=== PATIENT | male | born 1950 | race Native Hawaiian/Other Pacific Islander ===

== ENCOUNTER → 2021-11-06 | Outpatient (CLI) | payer MEDICARE ==
--- NOTE | 2021-11-06 15:21 | US ---
EXAMINATION TYPE: US venous doppler duplex LE DATE OF EXAM: 11/06/2021 2:45 PM COMPARISON: LOWER EXTREMITY VENOUS INSUFFICIENCY CLINICAL HISTORY: L97.512 NON PRESSURE CHRONIC ULCER. SIDE PERFORMED: Bilateral 1) Color flow is present and patency is documented in the following vessels. No DVT or SVT is noted . Common Femoral Vein Deep Femoral Vein Femoral Vein Popliteal Vein Proximal Calf Veins Greater Saph Vein Upper Small Saph Vein 2) There is venous reflux noted at the following venous levels: No venous reflux seen at this time. IMPRESSION: No venous reflux identified at this time.
== END | disposition home or self-care (01) ==
LOC: RADUSWWP 13:16
PROVIDERS: ATTEND Thoracic Surgery (Cardiothoracic Vascular Surgery)
DX: L97.512 Non-pressure chronic ulcer of other part of right foot with fat layer exposed (principal)
CPT/HCPCS: 93923; 93970

== ENCOUNTER 2022-05-04 11:55 | Inpatient (IN) | payer MEDICARE ==
[2022-05-04] MEDS ORDERED: SODIUM CHLORIDE 0.9% 1,000 ML IV STA ×2 (12:29)
[2022-05-04] MEDS ORDERED: ACETAMINOPHEN TAB 500 MG TAB PO STA (12:29)
[2022-05-04 12:30] LABS: Glucose,Whole Blood 194 mg/dL (75-99)
--- NOTE | 2022-05-04 12:33 | ED ---
Weakness HPI - General Chief complaint: Weakness Stated complaint: Weakness Time Seen by Provider: 05/04/22 12:06 Source: patient Mode of arrival: wheelchair Limitations: no limitations - History of Present Illness Initial comments: 72-year-old male with past medical history of diabetes presents emergency Department with weakness. States he awoke this morning and he felt extremely weak. He tends to eat some oatmeal however could not due to nausea. He lives alone. Denies any sick contacts. No fevers. He is a diabetic and therefore checked his glucose which was normal. He denies any chest pain or shortness of breath. Has a mild cough. No abdominal pain. Denies any changes in his bowel or bladder habits. States that he was so fatigued that he kept falling asleep that he had a neighbor drive him to the emergency department. No other al leviating, precipitating or modifying factors - Related Data Home Medications Medication Instructions Recorded Confirmed Cholecalciferol [Vitamin D3 (25 25 mcg PO DAILY 05/04/22 05/05/22 Mcg = 1000 Iu)] Cyanocobalamin [Vitamin B-12] 500 mcg PO DAILY 05/04/22 05/05/22 Gabapentin 300 mg PO BID 05/04/22 05/05/22 Glucosam/Chond/Hyalu/Cf Borate 1 tab PO DAILY 05/04/22 05/05/22 [Move Free [employer] Tablet] Insulin Aspart Protam & Aspart 40 unit SQ AC-BRKFST 05/04/22 05/05/22 [NovoLOG MIX 70-30 Flexpen] Insulin Aspart Protam & Aspart 50 unit SQ AC-SUPPER 05/04/22 05/05/22 [NovoLOG MIX 70-30 Flexpen] Liraglutide [Victoza 2-Chemo] 0.6 mg SQ DAILY 05/04/22 05/05/22 Pravastatin Sodium [Pravachol] 40 mg PO HS 05/04/22 05/05/22 lisinopriL [Zestril] 10 mg PO DAILY 05/04/22 05/05/22 Allergies Allergy/AdvReac Type Severity Reaction Status Date / Time No Known Allergies Allergy Verified 05/05/22 11:48 Review of Systems ROS Statement: Those systems with pertinent positive or pertinent negative responses have been documented in the HPI. ROS Other: All systems not noted in ROS Statement are negative. Past Medical History Past Medical History: Diabetes Mellitus, Hypertension Past Surgical History: Orthopedic Surgery Past Psychological History: No Psychological Hx Reported Smoking Status: Never smoker Past Alcohol Use History: Occasional Past Drug Use History: None Reported General Exam Limitations: no limitations General appearance: alert, in no apparent distress Head exam: Present: atraumatic, normocephalic, normal inspection Eye exam: Present: normal appearance, PERRL, EOMI. Absent: scleral icterus, conjunctival injection, periorbital swelling ENT exam: Present: normal exam, mucous membranes moist Neck exam: Present: normal inspection. Absent: tenderness, meningismus, lymphadenopathy Respiratory exam: Present: normal lung sounds bilaterally. Absent: respiratory distress, wheezes, rales, rhonchi, stridor Cardiovascular Exam: Present: regular rate, normal rhythm, normal heart sounds. Absent: systolic murmur, diastolic murmur, rubs, gallop, clicks GI/Abdominal exam: Present: soft, normal bowel sounds. Absent: distended, tenderness, guarding, rebound, rigid Extremities exam: Present: full ROM, normal capillary refill, other (wound right third toe, dorsal aspect of left foot wound). Absent: tenderness, pedal edema, joint swelling, calf tenderness Back exam: Present: normal inspection Neurological exam: Present: alert, oriented X3, CN II-XII intact Psychiatric exam: Present: normal affect, normal mood Skin exam: Present: warm, dry, intact, normal color. Absent: rash Course Vital Signs 05/04/22 05/04/22 05/04/22 11:57 13:53 15:04 Temperature 100.2 F H 99.3 F Pulse Rate 126 H 105 H 100 Respiratory 20 22 18 Rate Blood Pressure 141/84 113/40 103/65 O2 Sat by Pulse 95 99 95 Oximetry 05/04/22 05/04/22 05/04/22 16:02 17:34 19:23 Temperature 99.8 F H 100.3 F H Pulse Rate 90 86 90 Respiratory 16 16 16 Rate Blood Pressure 92/59 123/64 131/73 O2 Sat by Pulse 95 95 95 Oximetry EKG Findings - EKG Comments: EKG Findings:: EKG demonstrates sinus tachycardia with a rate of 123. SD interval 131. QRS 136. QTC of 417. No acute ST segment elevations or depressions concerning for ischemic changes Medical Decision Making - Medical Decision Making Upon arrival patient placed into room 22. Thorough history and physical exam was performed. Patient does have a temp of 103. IV is established. He is given a liter bolus of normal saline and started on 130 mL per hour. Patient given Tylenol. Laboratory studies are conducted. Lactic acid 2.6. Covid and influenza are not detected. Chest x-ray demonstrates bibasilar atelectasis versus infiltrate. Patient does have open wound on his right third toe and anterior aspect of his left foot. He is sent over for x-rays of his lower extremity which demonstrated soft tissue edema bilaterally with diffuse osteopenia. No signs of osteomyelitis. Patient reevaluated after fluids and Tylenol. He was given Rocephin and azithromycin. Heart rate has improved. Recommended admission. Spoke with Dr. Mace agreed to admit the patient. Please wound care on consult. Patient remained in stable condition awaiting a bed - Lab Data Result diagrams: 05/04/22 12:38 05/04/22 12:38 Lab Results 05/04/22 05/04/22 05/04/22 Range/Units 12:24 12:38 12:38 WBC 8.3 (3.8-10.6) k/uL RBC 4.66 (4.30-5.90) m/uL Hgb 14.5 (13.0-17.5) gm/dL Hct 46.6 (39.0-53.0) % MCV 100.1 H (80.0-100.0) fL MCH 31.2 (25.0-35.0) pg MCHC 31.1 (31.0-37.0) g/dL RDW 13.3 (11.5-15.5) % Plt Count 39 L (150-450) k/uL MPV 10.6 Neutrophils % 92 % Lymphocytes % 3 % Monocytes % 3 % Eosinophils % 1 % Basophils % 1 % Neutrophils # 7.6 (1.3-7.7) k/uL Lymphocytes # 0.2 L (1.0-4.8) k/uL Monocytes # 0.3 (0-1.0) k/uL Eosinophils # 0.1 (0-0.7) k/uL Basophils # 0.0 (0-0.2) k/uL Manual Slide Review Performed PT (9.0-12.0) sec INR (<1.2) APTT (22.0-30.0) sec Sodium (137-145) mmol/L Potassium (3.5-5.1) mmol/L Chloride (98-107) mmol/L Carbon Dioxide (22-30) mmol/L Anion Gap mmol/L BUN (9-20) mg/dL Creatinine (0.66-1.25) mg/dL Est GFR (CKD-EPI)AfAm (>60 ml/min/1.73 sqM) Est GFR (CKD-EPI)NonAf (>60 ml/min/1.73 sqM) Glucose (74-99) mg/dL POC Glucose (mg/dL) 194 H (75-99) mg/dL POC Glu [employer] ID Romy Iglesias Lactic Ac Sepsis Rflx Plasma Lactic Acid Tyron (0.7-2.0) mmol/L Calcium (8.4-10.2) mg/dL Magnesium (1.6-2.3) mg/dL Total Bilirubin (0.2-1.3) mg/dL AST (17-59) U/L ALT (4-49) U/L Alkaline Phosphatase (38-126) U/L Troponin I (0.000-0.034) ng/mL Total Protein (6.3-8.2) g/dL Albumin (3.5-5.0) g/dL Urine Color Yellow Urine Appearance Clear (Clear) Urine pH 6.0 (5.0-8.0) Ur Specific [place] 1.018 (1.001-1.035) Urine Protein 1+ H (Negative) Urine Glucose (UA) Trace H (Negative) Urine Ketones 1+ H (Negative) Urine Blood Trace H (Negative) Urine Nitrite Negative (Negative) Urine Bilirubin Negative (Negative) Urine Urobilinogen <2.0 (<2.0) mg/dL Ur Leukocyte Esterase Negative (Negative) Urine RBC 2 (0-5) /hpf Urine WBC 3 (0-5) /hpf Ur Squamous Epith Cells <1 (0-4) /hpf Urine Mucus Few H (None) /hpf Coronavirus (PCR) (Not Detectd) Influenza Type A RNA (Not Detectd) Influenza Type B (PCR) (Not Detectd) 05/04/22 05/04/22 05/04/22 Range/Units 12:38 12:38 12:38 WBC (3.8-10.6) k/uL RBC (4.30-5.90) m/uL Hgb (13.0-17.5) gm/dL Hct (39.0-53.0) % MCV (80.0-100.0) fL MCH (25.0-35.0) pg MCHC (31.0-37.0) g/dL RDW (11.5-15.5) % Plt Count (150-450) k/uL MPV Neutrophils % % Lymphocytes % % Monocytes % % Eosinophils % % Basophils % % Neutrophils # (1.3-7.7) k/uL Lymphocytes # (1.0-4.8) k/uL Monocytes # (0-1.0) k/uL Eosinophils # (0-0.7) k/uL Basophils # (0-0.2) k/uL Manual Slide Review PT (9.0-12.0) sec INR (<1.2) APTT (22.0-30.0) sec Sodium 136 L (137-145) mmol/L Potassium 4.4 (3.5-5.1) mmol/L Chloride 104 (98-107) mmol/L Carbon Dioxide 18 L (22-30) mmol/L Anion Gap 14 mmol/L BUN 11 (9-20) mg/dL Creatinine 0.59 L (0.66-1.25) mg/dL Est GFR (CKD-EPI)AfAm >90 (>60 ml/min/1.73 sqM) Est GFR (CKD-EPI)NonAf >90 (>60 ml/min/1.73 sqM) Glucose 199 H (74-99) mg/dL POC Glucose (mg/dL) (75-99) mg/dL POC Glu [employer] ID Lactic Ac Sepsis Rflx Plasma Lactic Acid Tyron 2.6 H* (0.7-2.0) mmol/L Calcium 9.5 (8.4-10.2) mg/dL Magnesium 1.4 L (1.6-2.3) mg/dL Total Bilirubin 1.4 H (0.2-1.3) mg/dL AST 84 H (17-59) U/L ALT 37 (4-49) U/L Alkaline Phosphatase 283 H (38-126) U/L Troponin I (0.000-0.034) ng/mL Total Protein 7.9 (6.3-8.2) g/dL Albumin 4.4 (3.5-5.0) g/dL Urine Color Urine Appearance (Clear) Urine pH (5.0-8.0) Ur Specific [place] (1.001-1.035) Urine Protein (Negative) Urine Glucose (UA) (Negative) Urine Ketones (Negative) Urine Blood (Negative) Urine Nitrite (Negative) Urine Bilirubin (Negative) Urine Urobilinogen (<2.0) mg/dL Ur Leukocyte Esterase (Negative) Urine RBC (0-5) /hpf Urine WBC (0-5) /hpf Ur Squamous Epith Cells (0-4) /hpf Urine Mucus (None) /hpf Coronavirus (PCR) (Not Detectd) Influenza Type A RNA Not Detected (Not Detectd) Influenza Type B (PCR) Not Detected (Not Detectd) 05/04/22 05/04/22 05/04/22 Range/Units 12:38 12:38 12:38 WBC (3.8-10.6) k/uL RBC (4.30-5.90) m/uL Hgb (13.0-17.5) gm/dL Hct (39.0-53.0) % MCV (80.0-100.0) fL MCH (25.0-35.0) pg MCHC (31.0-37.0) g/dL RDW (11.5-15.5) % Plt Count (150-450) k/uL MPV Neutrophils % % Lymphocytes % % Monocytes % % Eosinophils % % Basophils % % Neutrophils # (1.3-7.7) k/uL Lymphocytes # (1.0-4.8) k/uL Monocytes # (0-1.0) k/uL Eosinophils # (0-0.7) k/uL Basophils # (0-0.2) k/uL Manual Slide Review PT 11.7 (9.0-12.0) sec INR 1.1 (<1.2) APTT 22.8 (22.0-30.0) sec Sodium (137-145) mmol/L Potassium (3.5-5.1) mmol/L Chloride (98-107) mmol/L Carbon Dioxide (22-30) mmol/L Anion Gap mmol/L BUN (9-20) mg/dL Creatinine (0.66-1.25) mg/dL Est GFR (CKD-EPI)AfAm (>60 ml/min/1.73 sqM) Est GFR (CKD-EPI)NonAf (>60 ml/min/1.73 sqM) Glucose (74-99) mg/dL POC Glucose (mg/dL) (75-99) mg/dL POC Glu [employer] ID Lactic Ac Sepsis Rflx Plasma Lactic Acid Tyron (0.7-2.0) mmol/L Calcium (8.4-10.2) mg/dL Magnesium (1.6-2.3) mg/dL Total Bilirubin (0.2-1.3) mg/dL AST (17-59) U/L ALT (4-49) U/L Alkaline Phosphatase (38-126) U/L Troponin I <0.012 (0.000-0.034) ng/mL Total Protein (6.3-8.2) g/dL Albumin (3.5-5.0) g/dL Urine Color Urine Appearance (Clear) Urine pH (5.0-8.0) Ur Specific [place] (1.001-1.035) Urine Protein (Negative) Urine Glucose (UA) (Negative) Urine Ketones (Negative) Urine Blood (Negative) Urine Nitrite (Negative) Urine Bilirubin (Negative) Urine Urobilinogen (<2.0) mg/dL Ur Leukocyte Esterase (Negative) Urine RBC (0-5) /hpf Urine WBC (0-5) /hpf Ur Squamous Epith Cells (0-4) /hpf Urine Mucus (None) /hpf Coronavirus (PCR) Not Detected (Not Detectd) Influenza Type A RNA (Not Detectd) Influenza Type B (PCR) (Not Detectd) 05/04/22 Range/Units 13:08 WBC (3.8-10.6) k/uL RBC (4.30-5.90) m/uL Hgb (13.0-17.5) gm/dL Hct (39.0-53.0) % MCV (80.0-100.0) fL MCH (25.0-35.0) pg MCHC (31.0-37.0) g/dL RDW (11.5-15.5) % Plt Count (150-450) k/uL MPV Neutrophils % % Lymphocytes % % Monocytes % % Eosinophils % % Basophils % % Neutrophils # (1.3-7.7) k/uL Lymphocytes # (1.0-4.8) k/uL Monocytes # (0-1.0) k/uL Eosinophils # (0-0.7) k/uL Basophils # (0-0.2) k/uL Manual Slide Review PT (9.0-12.0) sec INR (<1.2) APTT (22.0-30.0) sec Sodium (137-145) mmol/L Potassium (3.5-5.1) mmol/L Chloride (98-107) mmol/L Carbon Dioxide (22-30) mmol/L Anion Gap mmol/L BUN (9-20) mg/dL Creatinine (0.66-1.25) mg/dL Est GFR (CKD-EPI)AfAm (>60 ml/min/1.73 sqM) Est GFR (CKD-EPI)NonAf (>60 ml/min/1.73 sqM) Glucose (74-99) mg/dL POC Glucose (mg/dL) (75-99) mg/dL POC Glu [employer] Super[employer] ID Lactic Ac Sepsis Rflx Y Plasma Lactic Acid Tyron (0.7-2.0) mmol/L Calcium (8.4-10.2) mg/dL Magnesium (1.6-2.3) mg/dL Total Bilirubin (0.2-1.3) mg/dL AST (17-59) U/L ALT (4-49) U/L Alkaline Phosphatase (38-126) U/L Troponin I (0.000-0.034) ng/mL Total Protein (6.3-8.2) g/dL Albumin (3.5-5.0) g/dL Urine Color Urine Appearance (Clear) Urine pH (5.0-8.0) Ur Specific [place] (1.001-1.035) Urine Protein (Negative) Urine Glucose (UA) (Negative) Urine Ketones (Negative) Urine Blood (Negative) Urine Nitrite (Negative) Urine Bilirubin (Negative) Urine Urobilinogen (<2.0) mg/dL Ur Leukocyte Esterase (Negative) Urine RBC (0-5) /hpf Urine WBC (0-5) /hpf Ur Squamous Epith Cells (0-4) /hpf Urine Mucus (None) /hpf Coronavirus (PCR) (Not Detectd) Influenza Type A RNA (Not Detectd) Influenza Type B (PCR) (Not Detectd) Disposition Clinical Impression: Pyrexia, Bilateral pneumonia, Wound, open, foot, Sepsis, Tachycardia, Hypomagnesemia Disposition: ADMITTED IP TO THIS HOSP Is patient prescribed a controlled substance at d/c from ED?: No Decision to Admit Reason: Admit from EC Decision Date: 05/04/22 Decision Time: 15:04
[2022-05-04 12:49] LABS: Basophils % (A) 1 %; Eosinophils # (A) 0.1 k/uL (0-0.7); Eosinophils % (A) 1 %; HCT 46.6 % (39.0-53.0); HGB 14.5 gm/dL (13.0-17.5); Lymphocytes # (A) 0.2 k/uL (1.0-4.8); Lymphocytes % (A) 3 %; MCH 31.2 pg (25.0-35.0); MCHC 31.1 g/dL (31.0-37.0); MCV 100.1 fL (80.0-100.0); Mean Platelet Volume 10.6; Monocytes # (A) 0.3 k/uL (0-1.0); Monocytes % (A) 3 %; Neutrophils # (A) 7.6 k/uL (1.3-7.7); Neutrophils % (A) 92 %; RBC 4.66 m/uL (4.30-5.90); RDW 13.3 % (11.5-15.5); WBC 8.3 k/uL (3.8-10.6)
[2022-05-04 13:01] LABS: ALT 37 U/L (4-49); AST 84 U/L (17-59); African American GFR (CKD) >90 (>60 ml/min/1.73 sqM); Albumin 4.4 g/dL (3.5-5.0); Alkaline Phosphatase 283 U/L (38-126); Anion Gap 14 mmol/L; Blood Urea Nitrogen 11 mg/dL (9-20); Calcium 9.5 mg/dL (8.4-10.2); Carbon Dioxide 18 mmol/L (22-30); Chloride 104 mmol/L (98-107); Glucose 199 mg/dL (74-99); Magnesium 1.4 mg/dL (1.6-2.3); Non-African American GFR(CKD) >90 (>60 ml/min/1.73 sqM); Potassium 4.4 mmol/L (3.5-5.1); Sodium 136 mmol/L (137-145); Total Bilirubin 1.4 mg/dL (0.2-1.3); Total Protein 7.9 g/dL (6.3-8.2)
[2022-05-04 13:07] LABS: INR 1.1 (<1.2); Partial Thromboplastin Time 22.8 sec (22.0-30.0); Prothrombin Time 11.7 sec (9.0-12.0)
[2022-05-04] MEDS ORDERED: MAGNESIUM SULFATE-D5W PMX 1 GM in DEXTROSE/WATER 1 100ML.BAG IVPB ONE (13:14)
[2022-05-04 13:21] LABS: Platelet Count 39 k/uL (150-450)
--- NOTE | 2022-05-04 13:42 | XR ---
EXAMINATION TYPE: XR chest 2V DATE OF EXAM: 05/04/2022 COMPARISON: NONE TECHNIQUE: PA and lateral views submitted. HISTORY: Cough FINDINGS: Hypertrophic degenerative change of the spine. Moderate wedge deformity thoracolumbar junction. Heart size normal. No overt failure. Arthropathy of the shoulders. No pneumothorax. Subsegmental basilar c onsolidation. IMPRESSION: 1. Bibasilar atelectasis versus early infiltrate.
[2022-05-04 14:23] LABS: Appearance,Urine Clear (Clear); Bilirubin,Urine Negative (Negative); Blood,Urine Trace (Negative); Color,Urine Yellow; Glucose,Urine (UA) Trace (Negative); Ketones,Urine 1+ (Negative); Leukocyte Esterase,Urine Negative (Negative); Mucus,Urine Few /hpf; Nitrite,Urine Negative (Negative); Protein,Urine 1+ (Negative); RBC,Urine 2 /hpf (0-5); Specific Gravity,Urine 1.018 (1.001-1.035); Squamous Epithelial Cell,Urine <1 /hpf (0-4); Urobilinogen,Urine <2.0 mg/dL (<2.0); WBC,Urine 3 /hpf (0-5)
[2022-05-04] MEDS ORDERED: cefTRIAXone IN SWFI 1,000 MG/10 ML SYRINGE IVP STA (14:28)
[2022-05-04] MEDS ORDERED: AZITHROMYCIN 500 MG in SODIUM CHLORIDE 0.9% 250 ML IVPB STA (14:29)
[2022-05-04] MEDS ORDERED: ACETAMINOPHEN TAB 325 MG TAB PO PRN (15:07)
[2022-05-04] MEDS ORDERED: NALOXONE 0.4 MG/ML 1 ML VIAL IV PRN (15:07)
[2022-05-04] MEDS ORDERED: IBUPROFEN 400 MG TAB PO PRN (15:07)
[2022-05-04] MEDS ORDERED: SODIUM CHLORIDE 0.9% 1,000 ML IV SCH (15:15)
[2022-05-04 16:04] VITALS: RESP 16
--- NOTE | 2022-05-04 16:05 | XR ---
EXAMINATION TYPE: XR foot complete bilateral DATE OF EXAM: 05/04/2022 COMPARISON: NONE HISTORY: Bilateral foot wounds TECHNIQUE: Three views are submitted. FINDINGS: Vascular calcifications and calcaneal spurs are noted bilaterally. Soft tissue edema bilaterally with diffuse osteopenia. Hammertoe deformities bilaterally with narrowing of the DIP, PIP and MTP joints of the second through fifth digits. Narrowing the first MTP joint of the bilateral feet noted. No kary tructive changes. No acute fracture. IMPRESSION: 1. Diffuse osteopenia and arthropathy. No evidence of destructive change.
[2022-05-04] MEDS ORDERED: SODIUM CHLORIDE 0.9% 1,000 ML IV ONE (17:32)
[2022-05-04 17:55] LABS: Glucose,Whole Blood 265 mg/dL (75-99)
[2022-05-04] MEDS ORDERED: INSULN ASP PRT/INSULIN ASPART 100 UNIT/ML 10 ML VIAL SQ SCH (18:30)
[2022-05-04] MEDS ORDERED: FLUTICASONE 50MCG/SPRAY NASAL 16GM EA NOSTRIL SCH (19:00)
[2022-05-04 19:24] VITALS: BP 131/73; PULSE 90; TEMP 100.3
[2022-05-04] MEDS ORDERED: Liraglutide [Victoza] 0.6 MG/0.1 ML SQ SCH (19:45)
[2022-05-04] MEDS ORDERED: PRAVASTATIN SODIUM 40 MG TAB PO SCH (21:00)
[2022-05-04] MEDS ORDERED: GABAPENTIN 300 MG CAP PO SCH (21:00)
--- NOTE | 2022-05-04 21:21 | P.HPIM ---
History of Present Illness H&P Date: 05/04/22 Chief Complaint: Weakness Patient left from the ER AMA. Nurse called us that patient said he to be more comfortable at home. Patient was not seen by me. Past Medical History Past Medical History: Diabetes Mellitus, Hypertension Past Surgical History: Orthopedic Surgery Past Psychological History: No Psychological Hx Reported Smoking Status: Never smoker Past Alcohol Use History: Occasional Past Drug Use History: None Reported Medications and Allergies Home Medications Medication Instructions Recorded Confirmed Type Cholecalciferol [Vitamin D3 (25 25 mcg PO DAILY 05/04/22 05/04/22 History Mcg = 1000 Iu)] Cyanocobalamin [Vitamin B-12] 500 mcg PO DAILY 05/04/22 05/04/22 History Gabapentin 300 mg PO BID 05/04/22 05/04/22 History Glucosam/Chond/Hyalu/Cf Borate 1 tab PO DAILY 05/04/22 05/04/22 History [Move Free [employer] Tablet] Insulin Aspart Protam & Aspart 40 unit SQ AC-BRKFST 05/04/22 05/04/22 History [NovoLOG MIX 70-30 Flexpen] Insulin Aspart Protam & Aspart 50 unit SQ AC-SUPPER 05/04/22 05/04/22 History [NovoLOG MIX 70-30 Flexpen] Liraglutide [Victoza 2-Chemo] 0.6 mg SQ DAILY 05/04/22 05/04/22 History Pravastatin Sodium [Pravachol] 40 mg PO HS 05/04/22 05/04/22 History lisinopriL [Zestril] 10 mg PO DAILY 05/04/22 05/04/22 History Allergies Allergy/AdvReac Type Severity Reaction Status Date / Time No Known Allergies Allergy Verified 05/04/22 15:48 Physical Exam Vitals: Vital Signs Temp Pulse Resp BP Pulse Ox 05/04/22 19:23 100.3 F H 90 16 131/73 95 05/04/22 17:34 86 16 123/64 95 05/04/22 16:02 99.8 F H 90 16 92/59 95 05/04/22 15:04 99.3 F 100 18 103/65 95 05/04/22 13:53 100.2 F H 105 H 22 113/40 99 05/04/22 11:57 126 H 20 141/84 95 Intake and Output 06/05/2005/04/22 05/04/22 06:59 14:59 22:59 Other: Weight 53.524 kg Results CBC & Chem 7: 05/04/22 12:38 05/04/22 12:38 Labs: Abnormal Lab Results - Last 24 Hours (Table) 05/04/22 05/04/22 05/04/22 Range/Units 12:24 12:38 12:38 MCV 100.1 H (80.0-100.0) fL Plt Count 39 L (150-450) k/uL Lymphocytes # 0.2 L (1.0-4.8) k/uL Sodium (137-145) mmol/L Carbon Dioxide (22-30) mmol/L Creatinine (0.66-1.25) mg/dL Glucose (74-99) mg/dL POC Glucose (mg/dL) 194 H (75-99) mg/dL Plasma Lactic Acid Tyron (0.7-2.0) mmol/L Magnesium (1.6-2.3) mg/dL Total Bilirubin (0.2-1.3) mg/dL AST (17-59) U/L Alkaline Phosphatase (38-126) U/L Urine Protein 1+ H (Negative) Urine Glucose (UA) Trace H (Negative) Urine Ketones 1+ H (Negative) Urine Blood Trace H (Negative) Urine Mucus Few H (None) /hpf 05/04/22 05/04/22 05/04/22 Range/Units 12:38 12:38 15:32 MCV (80.0-100.0) fL Plt Count (150-450) k/uL Lymphocytes # (1.0-4.8) k/uL Sodium 136 L (137-145) mmol/L Carbon Dioxide 18 L (22-30) mmol/L Creatinine 0.59 L (0.66-1.25) mg/dL Glucose 199 H (74-99) mg/dL POC Glucose (mg/dL) (75-99) mg/dL Plasma Lactic Acid Tyron 2.6 H* 4.8 H* (0.7-2.0) mmol/L Magnesium 1.4 L (1.6-2.3) mg/dL Total Bilirubin 1.4 H (0.2-1.3) mg/dL AST 84 H (17-59) U/L Alkaline Phosphatase 283 H (38-126) U/L Urine Protein (Negative) Urine Glucose (UA) (Negative) Urine Ketones (Negative) Urine Blood (Negative) Urine Mucus (None) /hpf 05/04/22 05/04/22 Range/Units 17:52 18:38 MCV (80.0-100.0) fL Plt Count (150-450) k/uL Lymphocytes # (1.0-4.8) k/uL Sodium (137-145) mmol/L Carbon Dioxide (22-30) mmol/L Creatinine (0.66-1.25) mg/dL Glucose (74-99) mg/dL POC Glucose (mg/dL) 265 H (75-99) mg/dL Plasma Lactic Acid Tyron 3.5 H* (0.7-2.0) mmol/L Magnesium (1.6-2.3) mg/dL Total Bilirubin (0.2-1.3) mg/dL AST (17-59) U/L Alkaline Phosphatase (38-126) U/L Urine Protein (Negative) Urine Glucose (UA) (Negative) Urine Ketones (Negative) Urine Blood (Negative) Urine Mucus (None) /hpf
--- NOTE | 2022-05-04 21:21 | P.DS ---
Providers Date of admission: 05/04/22 15:07 Expected date of discharge: 05/04/22 (AMA) Attending physician: Ernesto Neri Consults: 05/04/22 15:09 Consult Physician Urgent Consulting Provider: Brenna Jonas Consult Reason/Comments: pyrexia, bilateral foot wounds Do you want consulting provider notified?: Yes Primary care physician: [facility] Course: Patient left from the ER AMA. Nurse called us that patient said he to be more comfortable at home. Patient was not seen by me. Plan - Discharge Summary New Discharge Prescriptions: No Action lisinopriL [Zestril] 10 mg PO DAILY Cholecalciferol [Vitamin D3 (25 Mcg = 1000 Iu)] 25 mcg PO DAILY Liraglutide [Victoza 2-Chemo] 0.6 mg SQ DAILY Gabapentin 300 mg PO BID Pravastatin Sodium [Pravachol] 40 mg PO HS Glucosam/Chond/Hyalu/Cf Borate [Move Free [employer] Tablet] 1 tab PO DAILY Cyanocobalamin [Vitamin B-12] 500 mcg PO DAILY Insulin Aspart Protam & Aspart [NovoLOG MIX 70-30 Flexpen] 40 unit SQ AC- BRKFST Insulin Aspart Protam & Aspart [NovoLOG MIX 70-30 Flexpen] 50 unit SQ AC- SUPPER Discharge Medication List Cholecalciferol [Vitamin D3 (25 Mcg = 1000 Iu)] 25 mcg PO DAILY 05/04/22 [History] Cyanocobalamin [Vitamin B-12] 500 mcg PO DAILY 05/04/22 [History] Gabapentin 300 mg PO BID 05/04/22 [History] Glucosam/Chond/Hyalu/Cf Borate [Move Free Joint Health Tablet] 1 tab PO DAILY 05/04/22 [History] Insulin Aspart Protam & Aspart [NovoLOG MIX 70-30 Flexpen] 40 unit SQ AC-BRKFST 05/04/22 [History] Insulin Aspart Protam & Aspart [NovoLOG MIX 70-30 Flexpen] 50 unit SQ AC-SUPPER 05/04/22 [History] Liraglutide [Victoza 2-Chemo] 0.6 mg SQ DAILY 05/04/22 [History] Pravastatin Sodium [Pravachol] 40 mg PO HS 05/04/22 [History] lisinopriL [Zestril] 10 mg PO DAILY 05/04/22 [History] Follow up Appointment(s)/Referral(s): Jordan Mcdermott DO [Primary Care Provider] - 1-2 days
[2022-05-05] MEDS ORDERED: INSULN ASP PRT/INSULIN ASPART 100 UNIT/ML 10 ML VIAL SQ SCH (07:30)
[2022-05-05] MEDS ORDERED: lisinopriL 10 MG TAB PO SCH (09:00)
== END 2022-05-04 21:23 | disposition left against medical advice (07) | DRG 871 ==
LOC: EC 11:55 → 4SSUR 15:07
PROVIDERS: ADMIT Hospitalist; ATTEND Hospitalist
DX: A41.9 Sepsis, unspecified organism (principal); J18.9 Pneumonia, unspecified organism; E11.9 Type 2 diabetes mellitus without complications; Z79.4 Long term (current) use of insulin; S91.301A Unspecified open wound, right foot, initial encounter; S91.302A Unspecified open wound, left foot, initial encounter; Z20.822 Contact with and (suspected) exposure to COVID-19; I10 Essential (primary) hypertension; E83.42 Hypomagnesemia; M85.80 Other specified disorders of bone density and structure, unspecified site; Z79.899 Other long term (current) drug therapy; Z53.21 Procedure and treatment not carried out due to patient leaving prior to being seen by health care provider; Z60.2 Problems related to living alone
CPT/HCPCS: 36415; 71046; 80053; 81001; 83605; 83735; 84484; 85025; 85610; 85730; 87040; 87070; 87077; 87186; 87205; 87502; 87635; 93005; 96361; 96365; 96367; 96375; 99285

== ENCOUNTER 2022-05-05 10:33 | Inpatient (IN) | payer MEDICARE ==
[2022-05-05] MEDS ORDERED: NALOXONE 0.4 MG/ML 1 ML VIAL IV PRN (10:58)
[2022-05-05] MEDS ORDERED: IBUPROFEN 400 MG TAB PO PRN (10:58)
[2022-05-05] MEDS ORDERED: CEFEPIME 2 GM in SODIUM CHLORIDE 0.9% 100 ML IVPB STA (11:08)
--- NOTE | 2022-05-05 11:10 | ED ---
General Adult HPI - General Chief complaint: Recheck/Abnormal Lab/Rx Stated complaint: revisit Source: patient, RN notes reviewed Mode of arrival: ambulatory Limitations: no limitations - History of Present Illness Initial comments: Patient is a 72-year-old Irish who presents to the emergency room after being notified by the hospital positve blood cultures from an ER visit yesterday and which he was recommended admission and left AGAINST MEDICAL ADVICE. He reports that his night was uneventful and he rested comfortably. While being home he denied any episodes of fever, chills, nausea, vomiting or diaphoresis. He does note that he has wound to both his left plantar aspect that he follows with the wound clinic for and a newer wound to his right second toe which oc curred after he removed the toenail several days ago. He denies any foul odor or drainage from either wound. He has a past medical history significant for diabetes and hypertension. He denies any known history of MRSA. He denies any other complaints or concerns at this time. - Related Data Home Medications Medication Instructions Recorded Confirmed Cholecalciferol [Vitamin D3 (25 25 mcg PO DAILY 05/04/22 05/04/22 Mcg = 1000 Iu)] Cyanocobalamin [Vitamin B-12] 500 mcg PO DAILY 05/04/22 05/04/22 Gabapentin 300 mg PO BID 05/04/22 05/04/22 Glucosam/Chond/Hyalu/Cf Borate 1 tab PO DAILY 05/04/22 05/04/22 [Move Free Joint Simple-Fill Tablet] Insulin Aspart Protam & Aspart 40 unit SQ AC-BRKFST 05/04/22 05/04/22 [NovoLOG MIX 70-30 Flexpen] Insulin Aspart Protam & Aspart 50 unit SQ AC-SUPPER 05/04/22 05/04/22 [NovoLOG MIX 70-30 Flexpen] Liraglutide [Victoza 2-Chemo] 0.6 mg SQ DAILY 05/04/22 05/04/22 Pravastatin Sodium [Pravachol] 40 mg PO HS 05/04/22 05/04/22 lisinopriL [Zestril] 10 mg PO DAILY 05/04/22 05/04/22 Allergies Allergy/AdvReac Type Severity Reaction Status Date / Time No Known Allergies Allergy Verified 05/05/22 10:34 Review of Systems ROS Statement: Those systems with pertinent positive or pertinent negative responses have been documented in the HPI. ROS Other: All systems not noted in ROS Statement are negative. Past Medical History Past Medical History: Diabetes Mellitus, Hypertension Past Surgical History: Orthopedic Surgery Past Psychological History: No Psychological Hx Reported Smoking Status: Never smoker Past Alcohol Use History: Occasional Past Drug Use History: None Reported General Exam Limitations: no limitations General appearance: alert, in no apparent distress Head exam: Present: atraumatic, normocephalic, normal inspection Eye exam: Present: normal appearance, PERRL, EOMI. Absent: scleral icterus, conjunctival injection, periorbital swelling ENT exam: Present: normal exam, mucous membranes moist Neck exam: Present: normal inspection. Absent: tenderness, meningismus, lymphadenopathy Respiratory exam: Present: normal lung sounds bilaterally. Absent: respiratory distress, wheezes, rales, rhonchi, stridor Cardiovascular Exam: Present: regular rate, normal rhythm, normal heart sounds. Absent: systolic murmur, diastolic murmur, rubs, gallop, clicks GI/Abdominal exam: Present: soft, normal bowel sounds. Absent: distended, tenderness, guarding, rebound, rigid Extremities exam: Present: normal inspection, full ROM, normal capillary refill. Absent: tenderness, pedal edema, joint swelling, calf tenderness Neurological exam: Present: alert, oriented X3, CN II-XII intact Psychiatric exam: Present: normal affect, normal mood Skin exam: Present: other (Wound to right second toe distal no exudate or drainage. left foot plantar callous ) Course Vital Signs 05/05/22 10:34 Temperature 98.5 F Pulse Rate 83 Respiratory 16 Rate Blood Pressure 154/77 O2 Sat by Pulse 97 Oximetry Medical Decision Making - Medical Decision Making Repeat blood cultures and labs pending. Dr. Neri notified return to hospital for admission to treat positive blood cultures. Currently stable without any evidence of septicemia. Disposition Clinical Impression: Wound, open, foot, Bacteremia Disposition: ADMITTED IP TO THIS [facility] Condition: Stable Referrals: Jordan Mcdermott DO [Primary Care Provider] - 1-2 days Time of Disposition: 11:47 Decision to Admit Reason: Admit from EC (positive blood cultures)
[2022-05-05] MEDS ORDERED: CEFEPIME 2 GM in SODIUM CHLORIDE 0.9% 50 ML IVPB SCH (11:15)
[2022-05-05 12:01] LABS: ALT 33 U/L (4-49); AST 81 U/L (17-59); African American GFR (CKD) >90 (>60 ml/min/1.73 sqM); Albumin 3.7 g/dL (3.5-5.0); Alkaline Phosphatase 192 U/L (38-126); Anion Gap 9 mmol/L; Blood Urea Nitrogen 12 mg/dL (9-20); Calcium 8.7 mg/dL (8.4-10.2); Carbon Dioxide 22 mmol/L (22-30); Chloride 104 mmol/L (98-107); Glucose 261 mg/dL (74-99); INR 1.1 (<1.2); Non-African American GFR(CKD) >90 (>60 ml/min/1.73 sqM); Partial Thromboplastin Time 27.5 sec (22.0-30.0); Potassium 4.1 mmol/L (3.5-5.1); Prothrombin Time 12.1 sec (9.0-12.0); Sodium 135 mmol/L (137-145); Total Bilirubin 1.3 mg/dL (0.2-1.3); Total Protein 6.9 g/dL (6.3-8.2)
[2022-05-05 12:07] LABS: Basophils % (A) 1 %; Eosinophils % (A) 0 %; HCT 43.4 % (39.0-53.0); HGB 13.9 gm/dL (13.0-17.5); Lymphocytes # (A) 0.6 k/uL (1.0-4.8); Lymphocytes % (A) 10 %; MCH 32.6 pg (25.0-35.0); MCV 101.6 fL (80.0-100.0); Macrocytosis Slight; Mean Platelet Volume 11.3; Monocytes # (A) 0.4 k/uL (0-1.0); Monocytes % (A) 6 %; Neutrophils # (A) 4.7 k/uL (1.3-7.7); Neutrophils % (A) 79 %; RBC 4.27 m/uL (4.30-5.90)
[2022-05-05 12:48] LABS: Platelet Count 39 k/uL (150-450)
[2022-05-05] MEDS ORDERED: VANCOMYCIN IV PER PHARMACY 1 EACH MISC MISCELLANE PRN (13:31)
[2022-05-05] MEDS: VANCOMYCIN 1,500 MG in SODIUM CHLORIDE 0.9% 250 ML IVPB SCH ×2 (14:31→20:51)
--- NOTE | 2022-05-05 17:10 | P.HPIM ---
History of Present Illness H&P Date: 05/05/22 Chief Complaint: Positive blood cultures This is a pleasant 72-year-old patient, follows with Dr. Mcdermott. Chronic stable medical conditions include diabetes, hypertension, hyperlipidemia, peripheral neuropathy., Left foot plantar wound for which she follows at the wound care center per Dr. mota. Arterial waveform study done in October 2021. That showed adequate circulation. Yesterday morning patient started out with fever or chills. [place] dizzy lightheaded. He came to the ER. [place] uncomfortable in the hospital bed and left AMA. He was called in this morning and the blood cultures turn positive. And came back in again. Patient did say that about a week ago he had pulled out his right foot second nail with calipers. Area somewhat raw. Because of neuro apolonia he does not feel any pain. No change in his bowel habit that is daily. No urinary symptoms. No respiratory symptoms. Appetite is fair. Patient is given cefepime and vancomycin in the ER. Review of systems: GEN.: Fever chills EYES: None HEENT: None NECK: None RESPIRATORY: None CARDIOVASCULAR: None GASTROINTESTINAL: None GENITOURINARY: None MUSCULOSKELETAL: None LYMPHATICS: None HEMATOLOGICAL: None PSYCHIATRY: None NEUROLOGICAL: Decreased sensation distally Past medical history to include: Diabetes mellitus type 2, neuropathy, hypertension, hyperlipidemia Social history: Does not smoke. Alcohol occasionally. 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 Denies use of any recreational drugs. Family history: Reviewed, noncontributory to presentation Physical examination: VITAL SIGNS: 100.2, 105, 11 3/40, 99% room air yesterday GENERAL: BMI 30, declining bed, awake comfortable. EYES: Pupils equal. Conjunctiva normal. HEENT: External appearance of nose and ears normal, oral cavity grossly normal. NECK: JVD not raised; masses not palpable. HEART: First and second heart sounds are normal; no edema. LUNGS: Respiratory rate normal; clear to auscultation. ABDOMEN: Soft, nontender, liver spleen not palpable, no masses palpable. PSYCH: Alert and oriented x3; mood and affect normal. MUSCULOSKELETAL:No Clubbing/cyanosis;muscles-grossly intact DERMATOLOGICAL: Wound on the left foot plantar aspect. DVT is in the chart. Right foot second toe nail bed raw. NEUROLOGICAL: [Cranial nerves grossly intact; no facial asymmetry, decreased sensation distally LYMPHATICS: No lymph nodes palpable in the axilla and neck INVESTIGATIONS, reviewed in the clinical context: White count 6 hemoglobin 13.9 platelets 39 potassium 4.1 creatinine 0.55 lactic acid 2.1 Blood culture from May 04: Staph aureus May 04: COVID 19: Influenza type A, type B: Not detected EKG tracing personally reviewed by me-sinus tachycardia. Weight 123. Right bundle-branch block Chest x-ray film personally reviewed by me-lung frausto clear Foot x-ray: Diffuse osteopenia and arthropathy. No evidence of destructive changes Platelets 87 in 2013. Assessment and plan: -Sepsis with positive blood cultures with staph aureus. Likely source of the right foot second toe from patient having pulled out his toenail. Currently on IV vancomycin and cefepime. ID consulted. Local dressing. -Left foot plantar wound secondary to diabetes being followed by Dr. mota in the wound care center. Continue dressing changes as before -Diabetes mellitus type 2, chronically on insulin Levemir 18 units subcu daily at bedtime. NovoLog 3 units with meals. Accu- Cheks. -Essential hypertension Zestril 10 mg a day -Hyperlipidemia Pravachol 40 mg daily at bedtime -Diabetic peripheral neuropathy Gabapentin 300 mg twice a day. Given that patient has no painful cutback to 300 mg daily at bedtime -Thrombocytopenia, platelets 87 in 2013. 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 Consultation hematology.. IV vancomycin. IV cefepime. Repeat blood culture drawn today. Home medications resumed. Insulin. Accu-Cheks. Hold Lovenox given low platelets. Consult hematology Given the complexity and severity of patient's condition expect the patient to be in the hospital at least for 2 overnights Past Medical History Past Medical History: Diabetes Mellitus, Hypertension Past Surgical History: Orthopedic Surgery Past Psychological History: No Psychological Hx Reported Smoking Status: Never smoker Past Alcohol Use History: Occasional Past Drug Use History: None Reported Medications and Allergies Home Medications Medication Instructions Recorded Confirmed Type Cholecalciferol [Vitamin D3 (25 25 mcg PO DAILY 05/04/22 05/05/22 History Mcg = 1000 Iu)] Cyanocobalamin [Vitamin B-12] 500 mcg PO DAILY 05/04/22 05/05/22 History Gabapentin 300 mg PO BID 05/04/22 05/05/22 History Glucosam/Chond/Hyalu/Cf Borate 1 tab PO DAILY 05/04/22 05/05/22 History [Move Free Joint Health Tablet] Insulin Aspart Protam & Aspart 40 unit SQ AC-BRKFST 05/04/22 05/05/22 History [NovoLOG MIX 70-30 Flexpen] Insulin Aspart Protam & Aspart 50 unit SQ AC-SUPPER 05/04/22 05/05/22 History [NovoLOG MIX 70-30 Flexpen] Liraglutide [Victoza 2-Chemo] 0.6 mg SQ DAILY 05/04/22 05/05/22 History Pravastatin Sodium [Pravachol] 40 mg PO HS 05/04/22 05/05/22 History lisinopriL [Zestril] 10 mg PO DAILY 05/04/22 05/05/22 History Allergies Allergy/AdvReac Type Severity Reaction Status Date / Time No Known Allergies Allergy Verified 05/05/22 11:48 Physical Exam Vitals: Vital Signs Temp Pulse Resp BP Pulse Ox 05/05/22 12:46 72 18 114/64 96 05/05/22 10:34 98.5 F 83 16 154/77 97 Intake and Output 05/04/22 05/05/22 05/05/22 22:59 06:59 14:59 Other: Weight 97.522 kg Results CBC & Chem 7: 05/05/22 11:05 05/05/22 11:05 Labs: Abnormal Lab Results - Last 24 Hours (Table) 05/05/22 05/05/22 05/05/22 Range/Units 11:05 11:05 11:05 RBC 4.27 L (4.30-5.90) m/uL MCV 101.6 H (80.0-100.0) fL Plt Count 39 L (150-450) k/uL Lymphocytes # 0.6 L (1.0-4.8) k/uL PT 12.1 H (9.0-12.0) sec Sodium 135 L (137-145) mmol/L Creatinine 0.55 L (0.66-1.25) mg/dL Glucose 261 H (74-99) mg/dL Plasma Lactic Acid Tyron (0.7-2.0) mmol/L AST 81 H (17-59) U/L Alkaline Phosphatase 192 H (38-126) U/L 05/05/22 Range/Units 11:05 RBC (4.30-5.90) m/uL MCV (80.0-100.0) fL Plt Count (150-450) k/uL Lymphocytes # (1.0-4.8) k/uL PT (9.0-12.0) sec Sodium (137-145) mmol/L Creatinine (0.66-1.25) mg/dL Glucose (74-99) mg/dL Plasma Lactic Acid Tyron 2.1 H* (0.7-2.0) mmol/L AST (17-59) U/L Alkaline Phosphatase (38-126) U/L
[2022-05-05 17:37] LABS: Glucose,Whole Blood 185 mg/dL (75-99)
[2022-05-05] MEDS: INSULIN ASPART (NovoLOG) 100 UNIT/ML VIAL SQ SCH ×3 (18:25→22:00)
[2022-05-05] MEDS: CEFEPIME 2 GM in SODIUM CHLORIDE 0.9% 100 ML IVPB SCH (20:21)
[2022-05-05] MEDS: PRAVASTATIN SODIUM 40 MG TAB PO SCH (20:22)
[2022-05-05] MEDS: GABAPENTIN 300 MG CAP PO SCH (20:22)
[2022-05-05 20:32] LABS: Glucose,Whole Blood 221 mg/dL (75-99)
[2022-05-05] MEDS: INSULIN DETEMIR (LEVEMIR) 100 UNIT/ML SYR SQ SCH (20:51)
[2022-05-05] MEDS ORDERED: GABAPENTIN 300 MG CAP PO SCH (21:00)
[2022-05-06] MEDS: CEFEPIME 2 GM in SODIUM CHLORIDE 0.9% 100 ML IVPB SCH (04:16)
[2022-05-06] MEDS: VANCOMYCIN 1,500 MG in SODIUM CHLORIDE 0.9% 250 ML IVPB SCH (05:14)
[2022-05-06] MEDS: ACETAMINOPHEN TAB 325 MG TAB PO PRN (05:50)
--- NOTE | 2022-05-06 06:38 | P.CONS ---
History of Present Illness - Reason for Consult Consult date: 05/05/22 Bacteremia Requesting physician: Flor Hannon - Chief Complaint Fever and chills x one day - History of Present Illness Patient is a 72-year-old male with a past medical history significant for insulin-dependent Beatties mellitus hypertension hyperlipidemia patient did have a diabetic foot ulcer on his left foot for the patient to follow at the wound care center patient presented to the ER yesterday complaining of rigors and chills and this patient did have a fever ulceration to the left foot as well as his right second toe patient was started on antibiotic however the patient waited long enough in the ER got frustrated and left AGAINST MEDICAL ADVICE blood cultures were done came back positive with gram-positive cocci patient was called back and the patient came back to the hospital for further evaluation patient mention when he went home did not have any further fever or chills patient denies any headache no URI symptoms no chest pain no shortness of breath cough no abdominal pain he did have some drainage from his left foot however the patient did have diabetic neuropathy as denies significant pain to the ulceration on the both feet area Review of Systems Positive point has been mentioned in the HPI rest of the systems are negative Past Medical History Past Medical History: Diabetes Mellitus, Hypertension Past Surgical History: Orthopedic Surgery Past Psychological History: No Psychological Hx Reported Smoking Status: Never smoker Past Alcohol Use History: Occasional Past Drug Use History: None Reported Medications and Allergies Home Medications Medication Instructions Recorded Confirmed Type Cholecalciferol [Vitamin D3 (25 25 mcg PO DAILY 05/04/22 05/05/22 History Mcg = 1000 Iu)] Cyanocobalamin [Vitamin B-12] 500 mcg PO DAILY 05/04/22 05/05/22 History Gabapentin 300 mg PO BID 05/04/22 05/05/22 History Glucosam/Chond/Hyalu/Cf Borate 1 tab PO DAILY 05/04/22 05/05/22 History [Move Free Joint Health Tablet] Insulin Aspart Protam & Aspart 40 unit SQ AC-BRKFST 05/04/22 05/05/22 History [NovoLOG MIX 70-30 Flexpen] Insulin Aspart Protam & Aspart 50 unit SQ AC-SUPPER 05/04/22 05/05/22 History [NovoLOG MIX 70-30 Flexpen] Liraglutide [Victoza 2-Chemo] 0.6 mg SQ DAILY 05/04/22 05/05/22 History Pravastatin Sodium [Pravachol] 40 mg PO HS 05/04/22 05/05/22 History lisinopriL [Zestril] 10 mg PO DAILY 05/04/22 05/05/22 History Allergies Allergy/AdvReac Type Severity Reaction Status Date / Time No Known Allergies Allergy Verified 05/05/22 11:48 Physical Exam Vitals: Vital Signs Temp Pulse Resp BP Pulse Ox 05/05/22 15:00 69 16 135/68 97 05/05/22 14:35 68 18 139/68 96 05/05/22 12:46 72 18 114/64 96 05/05/22 10:34 98.5 F 83 16 154/77 97 Intake and Output 05/05/22 05/05/22 05/05/22 06:59 14:59 22:59 Other: Weight 97.522 kg GENERAL DESCRIPTION: An elderly male lying in bed, no distress. No tachypnea or accessory muscle of respiration use. HEENT: Shows Pallor , no scleral icterus. Oral mucous membrane is dry. No pharyngeal erythema or thrush NECK: Trachea central, no thyromegaly. LUNGS: Unlabored breathing. Clear to auscultation anteriorly. No wheeze or crackle. HEART: S1, S2, regular rate and rhythm. No loud murmur ABDOMEN: Soft, no tenderness , guarding or rigidity, no organomegaly EXTREMITIES: No edema of feet. Left foot plantar ulcer did have a nonhealing wound with the drainage SKIN: No rash, no masses palpable. NEUROLOGICAL: The patient is awake, alert, oriented x3, mood and affect normal. Results CBC & Chem 7: 05/05/22 11:05 05/06/22 05:54 Labs: Abnormal Lab Results - Last 24 Hours (Table) 05/05/22 05/05/22 05/05/22 Range/Units 11:05 11:05 11:05 RBC 4.27 L (4.30-5.90) m/uL MCV 101.6 H (80.0-100.0) fL Plt Count 39 L (150-450) k/uL Lymphocytes # 0.6 L (1.0-4.8) k/uL PT 12.1 H (9.0-12.0) sec Sodium 135 L (137-145) mmol/L Creatinine 0.55 L (0.66-1.25) mg/dL Glucose 261 H (74-99) mg/dL Plasma Lactic Acid Tyron (0.7-2.0) mmol/L AST 81 H (17-59) U/L Alkaline Phosphatase 192 H (38-126) U/L 05/05/22 Range/Units 11:05 RBC (4.30-5.90) m/uL MCV (80.0-100.0) fL Plt Count (150-450) k/uL Lymphocytes # (1.0-4.8) k/uL PT (9.0-12.0) sec Sodium (137-145) mmol/L Creatinine (0.66-1.25) mg/dL Glucose (74-99) mg/dL Plasma Lactic Acid Tyron 2.1 H* (0.7-2.0) mmol/L AST (17-59) U/L Alkaline Phosphatase (38-126) U/L Assessment and Plan (1) Bacteremia Current Visit: Yes Status: Acute Code(s): R78.81 - BACTEREMIA SNOMED Code(s): 1267820 Plan: 1patient with gram-positive bacteremia source is likely left foot diabetic foot infection and the concerning for possible underlying osteomyelitis as the patient did have a chronic nonhealing wound for many months. 2blood cultures will be repeated document clearance of bacteremia. 3we will obtain inflammatory markers. 4obtain a bone scan. 5continue with cefepime however will add vancomycin while waiting for the culture to finalize. We will follow on clinical condition and cultures to further adjust medication if needed Thank you for this consultation will follow this patient along with you Time with Patient: Greater than 30
[2022-05-06 06:53] LABS: Glucose,Whole Blood 162 mg/dL (75-99)
[2022-05-06 07:22] LABS: African American GFR (CKD) >90 (>60 ml/min/1.73 sqM); Non-African American GFR(CKD) >90 (>60 ml/min/1.73 sqM)
[2022-05-06] MEDS: INSULIN ASPART (NovoLOG) 100 UNIT/ML VIAL SQ SCH ×7 (10:04→22:24)
[2022-05-06] MEDS: CYANOCOBALAMIN 500 MCG TAB PO SCH (10:05)
[2022-05-06] MEDS: CHOLECALCIFEROL 25 MCG (1000 IU) TABLET PO SCH (10:05)
[2022-05-06] MEDS: lisinopriL 10 MG TAB PO SCH (10:05)
[2022-05-06 11:44] LABS: Glucose,Whole Blood 201 mg/dL (75-99)
[2022-05-06] MEDS ORDERED: VANCOMYCIN TROUGH DUE 1 EACH MISC MISCELLANE ONE (13:00)
--- NOTE | 2022-05-06 13:52 | NM ---
EXAMINATION TYPE: NM bone 3 phase DATE OF EXAM: 05/06/2022 COMPARISON: 05/04/2022 HISTORY: Left foot ulcer Triple phase bone scintigraphy was performed following the injection of 23.1 mCi Tc 99m MDP. Immedia te images and 5 hours post injection images acquired. FINDINGS: There is abnormal increased flow to right first and second digit and left first and second digit. Blood pole demonstrates soft tissue uptake corresponding to these regions. Delayed uptake demonstrates increased focal uptake involving the distal phalanx of the second digit. There is faint uptake involving the distal margin of the first digit of the left foot. Abnormal uptake involving the foot bilaterally likely post arthritic. IMPRESSION: 1. Cellulitis with findings suggestive of osteomyelitis involving the distal phalanx right second dig it. 2. Cellulitis with findings suspicious for early osteomyelitis distal phalanx left first digit.
[2022-05-06 17:56] LABS: Glucose,Whole Blood 151 mg/dL (75-99)
--- NOTE | 2022-05-06 18:59 | P.PN ---
Progress Note - Text Progress Note Date: 05/06/22 Chief Complaint: Positive blood cultures This is a pleasant 72-year-old patient, follows with Dr. Mcdermott. Chronic stable medical conditions include diabetes, hypertension, hyperlipidemia, peripheral neuropathy., Left foot plantar wound [facility] mota. Arterial waveform study done in October 2021. That showed adequate circulation. Yesterday morning patient started out with fever or chills. [place] dizzy lightheaded. He came to the ER. [place] uncomfortable in the hospital bed and left AMA. He was called in this morning and the blood cultures turn positive. And came back in again. Patient did say that about a week ago he had pulled out his right foot second nail with calipers. Area somewhat raw. Because of neuropathy he does not feel any pain. No change in his bowel habit that is daily. No urinary symptoms. No respiratory symptoms. Appetite is fair. Patient is given cefepime and vancomycin in the ER. May 06: Patient underwent for bone scan today. It was suggestive of osteomyelitis involving the distal phalanx of the right second digit and of the left first digit. No fever no chills. No pain. Antibiotic is being switched over to IV Ancef. Past medical history to include: Diabetes mellitus type 2, neuropathy, hypertension, hyperlipidemia Social history: Does not smoke. Alcohol occasionally. 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 Denies use of any recreational drugs. Family history: Reviewed, noncontributory to presentation Physical examination: VITAL SIGNS: 98, 69, 16, 1 46 x 71, 97% room air GENERAL: Sitting at the edge of the bed awake comfortable. EYES: Pupils equal. Conjunctiva normal. HEENT: External appearance of nose and ears normal, oral cavity grossly normal. NECK: JVD not raised; masses not palpable. HEART: First and second heart sounds are normal; no edema. LUNGS: Respiratory rate normal; clear to auscultation. ABDOMEN: Soft, nontender, liver spleen not palpable, no masses palpable. PSYCH: Alert and oriented x3; mood and affect normal. MUSCULOSKELETAL:No Clubbing/cyanosis;muscles-grossly intact DERMATOLOGICAL: Wound on the left foot plantar aspect. DVT is in the chart. Right foot second toe nail bed raw. NEUROLOGICAL: [Cranial nerves grossly intact; no facial asymmetry, decreased sensation distally INVESTIGATIONS, reviewed in the clinical context: Bone scan: Possible osteomyelitis involving the distal phalanx of the right second digit and the left first digit. White count 6 hemoglobin 13.9 platelets 39 potassium 4.1 creatinine 0.55 lactic acid 2.1 Blood culture from May 04: Staph aureus May 04: COVID 19: Influenza type A, type B: Not detected EKG tracing personally reviewed by me-sinus tachycardia. Weight 123. Right bundle-branch block Chest x-ray film personally reviewed by me-lung frausto clear Foot x-ray: Diffuse osteopenia and arthropathy. No evidence of destructive changes Platelets 87 in 2013. Assessment and plan: -Sepsis with positive blood cultures with staph aureus. Likely source of the right foot second toe from patient having pulled out his toenail. Antibiotics changed to IV Ancef.. Discussed with patient. -Left foot plantar wound secondary to diabetes being followed by Dr. mota in the wound care center. Continue dressing changes as before -Diabetes mellitus type 2, chronically on insulin Levemir 18 units subcu daily at bedtime. NovoLog 3 units with meals. Accu- Cheks. -Essential hypertension Zestril 10 mg a day -Hyperlipidemia Pravachol 40 mg daily at bedtime -Diabetic peripheral neuropathy Gabapentin 300 mg twice a day. Given that patient has no painful cutback to 300 mg daily at bedtime -Thrombocytopenia, platelets 87 in 2013. 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 Consultation hematology.. Antibiotics changed to IV Ancef. Other medications to continue. Follow with ID. Discussed with patient.
[2022-05-06 20:27] LABS: Glucose,Whole Blood 166 mg/dL (75-99)
[2022-05-06] MEDS: PRAVASTATIN SODIUM 40 MG TAB PO SCH (22:23)
[2022-05-06] MEDS: GABAPENTIN 300 MG CAP PO SCH (22:23)
[2022-05-06] MEDS: INSULIN DETEMIR (LEVEMIR) 100 UNIT/ML SYR SQ SCH (22:32)
[2022-05-07] MEDS ORDERED: SALINE NASAL GEL 14.1 GM TUBE NASAL PRN (05:48)
[2022-05-07 06:42] LABS: Basophils % (A) 1 %; Eosinophils # (A) 0.2 k/uL (0-0.7); Eosinophils % (A) 3 %; HCT 42.9 % (39.0-53.0); HGB 13.7 gm/dL (13.0-17.5); Lymphocytes % (A) 21 %; MCHC 31.8 g/dL (31.0-37.0); MCV 100.6 fL (80.0-100.0); Monocytes # (A) 0.3 k/uL (0-1.0); Monocytes % (A) 6 %; Neutrophils % (A) 65 %; RBC 4.27 m/uL (4.30-5.90); RDW 13.2 % (11.5-15.5); WBC 4.6 k/uL (3.8-10.6)
[2022-05-07 06:54] LABS: Platelet Count 48 k/uL (150-450)
[2022-05-07 06:58] LABS: Anion Gap 9 mmol/L; Blood Urea Nitrogen 7 mg/dL (9-20); Calcium 9.1 mg/dL (8.4-10.2); Carbon Dioxide 22 mmol/L (22-30); Chloride 107 mmol/L (98-107); Glucose 122 mg/dL (74-99); Potassium 4.2 mmol/L (3.5-5.1); Sodium 138 mmol/L (137-145)
[2022-05-07 07:09] LABS: Glucose,Whole Blood 129 mg/dL (75-99)
[2022-05-07] MEDS: INSULIN ASPART (NovoLOG) 100 UNIT/ML VIAL SQ SCH ×7 (07:37→22:24)
[2022-05-07] MEDS: CYANOCOBALAMIN 500 MCG TAB PO SCH (07:38)
[2022-05-07] MEDS: lisinopriL 10 MG TAB PO SCH (07:38)
[2022-05-07] MEDS: CHOLECALCIFEROL 25 MCG (1000 IU) TABLET PO SCH (07:38)
[2022-05-07 07:40] LABS: African American GFR (CKD) >90 (>60 ml/min/1.73 sqM); Non-African American GFR(CKD) >90 (>60 ml/min/1.73 sqM)
[2022-05-07 09:08] LABS: C Reactive Protein 4.8 mg/dL (<1.0)
[2022-05-07 11:29] LABS: Glucose,Whole Blood 167 mg/dL (75-99)
[2022-05-07] MEDS ORDERED: LIDOCAINE 1% INJ 10MG/ML (5 ML VIAL-PF) SQ ONE (12:05)
[2022-05-07 13:35] LABS: Erythrocyte Sedimentation Rate 53 mm/hr (0-15)
--- NOTE | 2022-05-07 15:53 | IR ---
PICC LINE PLACEMENT: HISTORY: Infection requiring long-term antibiotic therapy PROCEDURE: Ultrasound and fluoroscopic guidance of PICC line placement. COMPLICATIONS: None ANESTHESIA: 1. 1% Lidocaine locally. FINDINGS/TECHNIQUE: The procedure was explained to the patient. The risks, complications, benefits and alternatives were discussed and any questions were answered. Informed consent was obtained. The patient was placed supine on the fluoroscopic table and prepped and draped in the usual sterile fash ion. Utilizing a 21 gauge needle and sonographic and fluoroscopic guidance, access in the left basi lic vein was achieved and there is placement of a 0.018 guidewire. The vein is patent. A 4-F sheath was placed over the guidewire. The guidewire and dilator were removed and a 4-F. PICC line was plac ed through the sheath with the tip at the level of the SVC. The sheath was removed, the catheter was flushed and sutured into position. The patient was stable throughout the procedure and remained sta ble upon discharge from the Department of Radiology. The vein puncture was patent under ultrasound. A farley scale image was obtained to document patency of the vein punctured. All elements of the maximal barrier technique were utilized. FLUOROSCOPY TIME: 0.5 minutes and one images submitted IMPRESSION: Successful PICC line placement under ultrasound and fluoroscopic guidance.
[2022-05-07 16:36] LABS: Glucose,Whole Blood 163 mg/dL (75-99)
--- NOTE | 2022-05-07 17:00 | P.PN ---
Progress Note - Text Progress Note Date: 05/07/22 Chief Complaint: Positive blood cultures This is a pleasant 72-year-old patient, follows with Dr. Mcdermott. Chronic stable medical conditions include diabetes, hypertension, hyperlipidemia, peripheral neuropathy., Left foot plantar wound for which she follows [facility] per Dr. mota. Arterial waveform study done in October 2021. That showed adequate circulation. Yesterday morning patient started out with fever or chills. [place] dizzy lightheaded. He came to the ER. [place] uncomfortable in the hospital bed and left AMA. He was called in this morning and the blood cultures turn positive. And came back in again. Patient did say that about a week ago he had pulled out his right foot second nail with calipers. Area somewhat raw. Because of neuropathy he does not feel any pain. No change in his bowel habit that is daily. No urinary symptoms. No respiratory symptoms. Appetite is fair. Patient is given cefepime and vancomycin in the ER. May 06: Patient underwent for bone scan today. It was suggestive of osteomyelitis involving the distal phalanx of the right second digit and of the left first digit. No fever no chills. No pain. Antibiotic is being switched over to IV Ancef. May 07: IV Ancef. No pain. PICC line inserted. Repeat blood cultures a negative to allow. Discussed with patient. Active Medications Acetaminophen (Acetaminophen Tab 325 Mg Tab) 650 mg PO Q6HR PRN PRN Reason: Mild Pain or Fever > 100.5 Last Admin: 05/06/22 05:50 Dose: 650 mg Cholecalciferol (Cholecalciferol 25 Mcg (1000 Iu) Tablet) 25 mcg PO DAILY [facility] Last Admin: 05/07/22 07:38 Dose: 25 mcg Cyanocobalamin (Cyanocobalamin 500 Mcg Tab) 500 mcg PO DAILY [facility] Last Admin: 05/07/22 07:38 Dose: 500 mcg Gabapentin (Gabapentin 300 Mg Cap) 300 mg PO HS [facility] Last Admin: 05/06/22 22:23 Dose: 300 mg Cefazolin Sodium 2 gm/ Sodium (Chloride) 50 mls @ 100 mls/hr IVPB Q8HR [facility]SE MARTIN; Protocol Last Admin: 05/07/22 16:40 Dose: 100 mls/hr Ibuprofen (Ibuprofen 400 Mg Tab) 400 mg PO Q6HR PRN PRN Reason: Mild Pain or Fever > 100.5 Insulin Aspart (Insulin Aspart (Novolog) 100 Unit/Ml Vial) 0 unit SQ ACHS [facility]; Protocol Last Admin: 05/07/22 16:40 Dose: 2 unit Insulin Aspart (Insulin Aspart (Novolog) 100 Unit/Ml Vial) 3 unit SQ AC-TID [facility] Last Admin: 05/07/22 16:40 Dose: 3 unit Insulin Detemir (Insulin Detemir (Levemir) 100 Unit/Ml Syr) 18 unit SQ [facility] Last Admin: 05/06/22 22:32 Dose: 18 unit Lisinopril (Lisinopril 10 Mg Tab) 10 mg PO DAILY [facility] Last Admin: 05/07/22 07:38 Dose: 10 mg Naloxone HCl (Naloxone 0.4 Mg/Ml 1 Ml Vial) 0.2 mg IV Q2M PRN PRN Reason: Opioid Reversal Pravastatin Sodium (Pravastatin Sodium 40 Mg Tab) 40 mg PO [facility] Last Admin: 05/06/22 22:23 Dose: 40 mg Sodium Chloride (Saline Nasal Gel 14.1 Gm Tube) 1 applic NASAL Q4HR PRN PRN Reason: Dry Nasal Passages Past medical history to include: Diabetes mellitus type 2, neuropathy, hypertension, hyperlipidemia Social history: Does not smoke. Alcohol occasionally. 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 Denies use of any recreational drugs. Family history: Reviewed, noncontributory to presentation Physical examination: VITAL SIGNS: 97.7, 67, 16, 148/76, 98% room air GENERAL: Sitting at the edge of the bed , comfortable. EYES: Pupils equal. Conjunctiva normal. HEENT: External appearance of nose and ears normal, oral cavity grossly normal. NECK: JVD not raised; masses not palpable. HEART: First and second heart sounds are normal; no edema. LUNGS: Respiratory rate normal; clear to auscultation. ABDOMEN: Soft, nontender, liver spleen not palpable, no masses palpable. PSYCH: Alert and oriented x3; mood and affect normal. DERMATOLOGICAL: Wound on the left foot plantar aspect. Right foot second toe nail bed raw. NEUROLOGICAL: [Cranial nerves grossly intact; no facial asymmetry, decreased sensation distally INVESTIGATIONS, reviewed in the clinical context: May 07: White count 4.6 hemoglobin 13.7 platelets 48 potassium 4.2 creatinine 0 .48 Bone scan: Possible osteomyelitis involving the distal phalanx of the right second digit and the left first digit. White count 6 hemoglobin 13.9 platelets 39 potassium 4.1 creatinine 0.55 lactic acid 2.1 Blood culture from May 04: Staph aureus May 04: COVID 19: Influenza type A, type B: Not detected EKG tracing personally reviewed by me-sinus tachycardia. Weight 123. Right bundle-branch block Chest x-ray film personally reviewed by me-lung frausto clear Foot x-ray: Diffuse osteopenia and arthropathy. No evidence of destructive changes Platelets 87 in 2013. Assessment and plan: -Sepsis with positive blood cultures with staph aureus. Likely source of the right foot second toe from patient having pulled out his toenail. Antibiotics changed to IV Ancef.. Discussed with patient. -Left foot plantar wound secondary to diabetes being followed by Dr. mota in the wound care center. Continue dressing changes as before -Diabetes mellitus type 2, chronically on insulin Levemir 18 units subcu daily at bedtime. NovoLog 3 units with meals. Accu- Cheks. -Essential hypertension Zestril 10 mg a day -Hyperlipidemia Pravachol 40 mg daily at bedtime -Diabetic peripheral neuropathy Gabapentin 300 mg twice a day. Given that patient has no painful cutback to 300 mg daily at bedtime -Thrombocytopenia, platelets 87 in 2013. 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 Consultation hematology.. IV Ancef. Got PICC line. Discussed with patient. Hematology consulted.
--- NOTE | 2022-05-07 20:22 | P.CONS ---
History of Present Illness - Reason for Consult Consult date: 05/07/22 thrombocytopenia Requesting physician: Ernesto Neri - Chief Complaint Positive blood cultures - History of Present Illness Mr Staley is a very pleasant 72-year-old man we have been asked to see in regards to thrombocytopenia. Patient has been dealing with infections of the foot for about a year, the last 4-5 months it is been worse and he has been seeing wound care. He is a type II diabetic since 2000, treated for diabetic neuropathy, hypertension, hyperlipidemia. On chart review patient did have a lab draw in 2013 and his platelets at that time were 87,000. Currently there 48,000. CRP, ESR both elevated. WBC and hemoglobin are normal. Patient denies any known history of blood problems, never told he had low platelets previously, denies bleeding tendencies, liver disease, EtOH abuse, autoimmune disease. Few days ago he experienced some chills, diarrhea, felt "out of it", he was seen in the ER and blood cultures were drawn, those came back positive and patient was called back. Patient denies any fevers, oral irritation, epistaxis, gum bleeding, chest pain, shortness of breath, cough, abdominal pain or cramping, acute changes in bowel or bladder habits. Review of Systems 10 point review of systems is negative except as stated in HPI Past Medical History Past Medical History: Diabetes Mellitus, Hypertension History of Any Multi-Drug Resistant Organisms: None Reported Past Surgical History: Orthopedic Surgery Past Psychological History: No Psychological Hx Reported Smoking Status: Never smoker Past Alcohol Use History: Occasional Past Drug Use History: None Reported Medications and Allergies Home Medications Medication Instructions Recorded Confirmed Type Cholecalciferol [Vitamin D3 (25 25 mcg PO DAILY 05/04/22 05/05/22 History Mcg = 1000 Iu)] Cyanocobalamin [Vitamin B-12] 500 mcg PO DAILY 05/04/22 05/05/22 History Gabapentin 300 mg PO BID 05/04/22 05/05/22 History Glucosam/Chond/Hyalu/Cf Borate 1 tab PO DAILY 05/04/22 05/05/22 History [Move Free Joint Health Tablet] Insulin Aspart Protam & Aspart 40 unit SQ AC-BRKFST 05/04/22 05/05/22 History [NovoLOG MIX 70-30 Flexpen] Insulin Aspart Protam & Aspart 50 unit SQ AC-SUPPER 05/04/22 05/05/22 History [NovoLOG MIX 70-30 Flexpen] Liraglutide [Victoza 2-Chemo] 0.6 mg SQ DAILY 05/04/22 05/05/22 History Pravastatin Sodium [Pravachol] 40 mg PO HS 05/04/22 05/05/22 History lisinopriL [Zestril] 10 mg PO DAILY 05/04/22 05/05/22 History Allergies Allergy/AdvReac Type Severity Reaction Status Date / Time No Known Allergies Allergy Verified 05/05/22 11:48 Physical Exam Vitals: Vital Signs Temp Pulse Resp BP Pulse Ox 05/07/22 15:01 97.7 F 67 16 148/76 98 05/07/22 07:41 97.3 F L 64 16 125/76 97 05/07/22 07:37 95 05/07/22 02:00 98.0 F 70 20 157/81 98 Intake and Output 05/07/22 05/07/22 05/07/22 06:59 14:59 22:59 Other: # Voids 1 1 - Constitutional General appearance: average body habitus, cooperative, no acute distress - EENT Eyes: anicteric sclerae, EOMI ENT: hearing grossly normal, normal oropharynx - Neck 1 cm cystic-type mass posterior and inferior to the ear, soft Neck: no lymphadenopathy - Respiratory Respiratory: bilateral: CTA - Cardiovascular Rhythm: regular Heart sounds: normal: S1, S2 Abnormal Heart Sounds: no systolic murmur, no diastolic murmur, no rub, no S3 Gallop, no S4 Gallop, no click, no other leg Peripheral Edema: bilateral: Trace - Gastrointestinal General gastrointestinal: no absent bowel sounds, no decreased bowel sounds, no distended, no hepatomegaly, no hyperactive bowel sounds, normal bowel sounds, no organomegaly, no rigid, no scaphoid, soft, no splenomegaly, no tenderness, no umbilical hernia, no ventral hernia - Integumentary right second toe bandaged - Neurologic Neurologic: CNII-XII intact - Musculoskeletal Musculoskeletal: strength equal bilaterally - Psychiatric Psychiatric: A&O x's 3, appropriate affect, intact judgment & insight Results CBC & Chem 7: 05/07/22 05:42 05/07/22 05:42 Labs: Abnormal Lab Results - Last 24 Hours (Table) 05/06/22 05/07/22 05/07/22 Range/Units 20:18 05:42 05:42 RBC 4.27 L (4.30-5.90) m/uL MCV 100.6 H (80.0-100.0) fL Plt Count 48 L (150-450) k/uL ESR 53 H (0-15) mm/hr BUN 7 L (9-20) mg/dL Creatinine 0.48 L (0.66-1.25) mg/dL Glucose 122 H (74-99) mg/dL POC Glucose (mg/dL) 166 H (75-99) mg/dL C-Reactive Protein 4.8 H (<1.0) mg/dL 05/07/22 05/07/22 05/07/22 Range/Units 06:58 11:25 16:35 RBC (4.30-5.90) m/uL MCV (80.0-100.0) fL Plt Count (150-450) k/uL ESR (0-15) mm/hr BUN (9-20) mg/dL Creatinine (0.66-1.25) mg/dL Glucose (74-99) mg/dL POC Glucose (mg/dL) 129 H 167 H 163 H (75-99) mg/dL C-Reactive Protein (<1.0) mg/dL Microbiology - Last 24 Hours (Table) 05/05/22 11:05 Blood Culture - Preliminary Blood No Growth after 48 hours 05/05/22 10:50 Blood Culture - Preliminary Blood No Growth after 48 hours Comments: nuclear medicine bone scan report reviewed Assessment and Plan Plan: Platelets of 87,000 documented back in 2013. Plt now 48,000, no other labs for comparison. Patient's counts are adequate at this time. No anticoagulation or antiplatelet madications on patient's medication list. No acute intervention. Recommended SCDs for DVT prophylaxis for now. Acute intervention is not needed for platelet count at this time Additional labs ordered to workup thrombocytopenia. Possible underlying causes include chronic infection over the last year, chronic antibiotic/antifungal treatments, also suspect maybe some possible fatty liver disease secondary to diabetes. Continue to follow up, CBC daily. attests: I have performed H&P, seen and examined patient, developed impression and plan of care. Discussed with dictator. Agree with documentation dictated as a scribe
[2022-05-07 20:59] LABS: Glucose,Whole Blood 169 mg/dL (75-99)
[2022-05-07] MEDS: PRAVASTATIN SODIUM 40 MG TAB PO SCH (22:21)
[2022-05-07] MEDS: GABAPENTIN 300 MG CAP PO SCH (22:21)
[2022-05-07] MEDS: ACETAMINOPHEN TAB 325 MG TAB PO PRN (22:21)
[2022-05-07] MEDS: INSULIN DETEMIR (LEVEMIR) 100 UNIT/ML SYR SQ SCH (22:25)
[2022-05-08 07:14] LABS: Glucose,Whole Blood 117 mg/dL (75-99)
[2022-05-08] MEDS: INSULIN ASPART (NovoLOG) 100 UNIT/ML VIAL SQ SCH ×4 (07:31→13:23)
[2022-05-08] MEDS: CYANOCOBALAMIN 500 MCG TAB PO SCH (08:06)
[2022-05-08] MEDS: CHOLECALCIFEROL 25 MCG (1000 IU) TABLET PO SCH (08:06)
[2022-05-08] MEDS: lisinopriL 10 MG TAB PO SCH (08:06)
--- NOTE | 2022-05-08 08:55 | US ---
EXAMINATION TYPE: US abdomen complete DATE OF EXAM: 05/08/2022 COMPARISON: NONE CLINICAL HISTORY: thrombocytopenia. no symptoms EXAM MEASUREMENTS: Liver Length: 18.0 cm Gallbladder Wall: 0.4 cm CBD: 0.5 cm Spleen: 18.5 cm Right Kidney: 12.0 x 5.1 x 5.7 cm Left Kidney: 12.9 x 4.7 x 6.2 cm Pancreas: wnl Liver: multiple focal lesions seen within left and right lobe, liver is heterogeneous in appearance and enlarged. Gallbladder: wall thickened slightly Evidence for sonographic Angulo's sign: no CBD: wnl Spleen: enlarged Right Kidney: wnl Left Kidney: wnl Upper IVC: wnl Abd Aorta: limited views IMPRESSION: 1. Multiple scattered hepatic lesions. Additional workup is recommended. CT with contrast can be perf ormed. 2. Thickened gallbladder wall. 3. Mild Hepatomegaly and marked splenomegaly
[2022-05-08 09:02] LABS: Protein, Total 6.3 g/dL (6.2-8.2)
[2022-05-08 09:28] LABS: African American GFR (CKD) 117.2 (60.0-200.0); Non-African American GFR(CKD) 101.2 (60.0-200.0); Rheumatoid Factor, Qnt <10 IU/mL (0-15); Vitamin B12 >2000.0 pg/mL (200.0-944.0)
[2022-05-08 09:56] VITALS: PULSE 67
--- NOTE | 2022-05-08 10:51 | P.PN ---
Subjective Progress Note Date: 05/08/22 Objective - Vital Signs Vital signs: Vital Signs Temp 99.0 F 05/08/22 08:00 Pulse 67 05/08/22 08:00 Resp 18 05/08/22 08:00 BP 145/77 05/08/22 08:00 Pulse Ox 97 05/08/22 08:00 FiO2 Intake & Output 05/07/22 05/08/22 05/08/22 18:59 06:59 18:59 Intake Total 480 Balance 480 Intake: Oral 480 Other: # Voids 1 2 - Exam - Constitutional General appearance: average body habitus, cooperative, no acute distress - EENT Eyes: anicteric sclerae, EOMI ENT: hearing grossly normal, normal oropharynx - Neck 1 cm cystic-type mass posterior and inferior to the ear, soft Neck: no lymphadenopathy - Respiratory Respiratory: bilateral: CTA - Cardiovascular Rhythm: regular Heart sounds: normal: S1, S2 Abnormal Heart Sounds: no systolic murmur, no diastolic murmur, no rub, no S3 Gallop, no S4 Gallop, no click, no other leg Peripheral Edema: bilateral: Trace - Gastrointestinal General gastrointestinal: no absent bowel sounds, no decreased bowel sounds, no distended, no hepatomegaly, no hyperactive bowel sounds, normal bowel sounds, no organomegaly, no rigid, no scaphoid, soft, no splenomegaly, no tenderness, no umbilical hernia, no ventral hernia - Integumentary right second toe bandaged - Neurologic Neurologic: CNII-XII intact - Musculoskeletal Musculoskeletal: strength equal bilaterally - Psychiatric Psychiatric: A&O x's 3, appropriate affect, intact judgment & insight - Labs CBC & Chem 7: 05/08/22 13:44 05/08/22 13:44 Labs: Abnormal Lab Results - Last 24 Hours (Table) 05/07/22 05/07/22 05/07/22 Range/Units 05:42 11:25 16:35 ESR 53 H (0-15) mm/hr POC Glucose (mg/dL) 167 H 163 H (75-99) mg/dL Vitamin B12 (200.0-944.0) pg/mL 05/07/22 05/08/22 05/08/22 Range/Units 20:58 06:56 07:12 ESR (0-15) mm/hr POC Glucose (mg/dL) 169 H 117 H (75-99) mg/dL Vitamin B12 >2000.0 H (200.0-944.0) pg/mL Microbiology - Last 24 Hours (Table) 05/07/22 05:42 Blood Culture - Preliminary Blood No Growth after 24 hours 05/05/22 11:05 Blood Culture - Preliminary Blood No Growth after 48 hours 05/05/22 10:50 Blood Culture - Preliminary Blood No Growth after 48 hours Assessment and Plan Plan: nuclear medicine bone scan report reviewed Assessment and Plan Plan: Platelets of 87,000 documented back in 2013. To 52K no NSAIDS Recheck Labs this am Possible underlying causes include chronic infection over the last year, chronic antibiotic/antifungal treatments, also suspect maybe some possible fatty liver disease secondary to diabetes. Platelets improved greater than 50k attests: I have performed H&P, seen and examined patient, developed impression and plan of care. Discussed with dictator. Agree with documentation dictated as a scribe
--- NOTE | 2022-05-08 11:02 | P.PN ---
Subjective Progress Note Date: 05/06/22 Principal diagnosis: Bacteremia Patient is a 72-year-old male with a past medical history significant for diabetes mellitus and nonhealing ulcer to his left foot plantar area and recent self debridement of his right second toe presented to the hospital with bacteremia. On today's evaluation is 05/06/2022, the patient denies having any fevers or any chills, the patient is breathing comfortably, no chest pain shortness of breath or cough no abdominal pain no diarrhea and no pain to his left foot ulcer Objective - Vital Signs Vital signs: Vital Signs Temp 98.0 F 05/06/22 08:00 Pulse 69 05/06/22 08:00 Resp 16 05/06/22 08:00 BP 146/71 05/06/22 08:00 Pulse Ox 97 05/06/22 08:00 FiO2 Intake & Output 05/05/22 05/06/22 05/06/22 18:59 06:59 18:59 Weight 97.522 kg 97.522 kg Other: Voiding Method Toilet # Voids 5 # Bowel Movements 0 - Exam GENERAL DESCRIPTION: An elderly male lying in bed in no distress RESPIRATORY SYSTEM: Unlabored breathing , decreased breath sounds at bases HEART: S1 S2 regular rate and rhythm , ABDOMEN: Soft , no tenderness EXTREMITIES: No edema feet - Labs CBC & Chem 7: 05/07/22 05:42 05/08/22 06:56 Labs: Abnormal Lab Results - Last 24 Hours (Table) 05/05/22 05/05/22 05/06/22 Range/Units 17:35 20:30 05:54 Creatinine 0.47 L (0.66-1.25) mg/dL POC Glucose (mg/dL) 185 H 221 H (75-99) mg/dL 05/06/22 05/06/22 Range/Units 06:49 11:42 Creatinine (0.66-1.25) mg/dL POC Glucose (mg/dL) 162 H 201 H (75-99) mg/dL Microbiology - Last 24 Hours (Table) 05/05/22 11:05 Blood Culture - Preliminary Blood No Growth after 24 hours 05/05/22 10:50 Blood Culture - Preliminary Blood No Growth after 24 hours Assessment and Plan (1) Bacteremia Current Visit: Yes Status: Acute Code(s): R78.81 - BACTEREMIA SNOMED Code(s): 7767519 Plan: 1patient with gram-positive bacteremia source is likely left foot diabetic foot infection and the concerning for possible underlying osteomyelitis as the patient did have a chronic nonhealing wound for many months. 2blood cultures will be repeated document clearance of bacteremia. 3bone scan is currently pending. 4blood cultures with MSSA antibiotic will be switched over to cefazolin 2 g every 8 hours Time with Patient: Less than 30
--- NOTE | 2022-05-08 11:04 | P.PN ---
Subjective Progress Note Date: 05/07/22 Principal diagnosis: Bacteremia Patient is a 72-year-old male with a past medical history significant for diabetes mellitus and nonhealing ulcer to his left foot plantar area and recent self debridement of his right second toe presented to the hospital with bacteremia. On today's evaluation is 05/07/2022, the patient remains to be afebrile, the patient is breathing comfortably on room air, patient chest pain shortness of breath or cough no abdominal pain no diarrhea and no pain to his left foot ulcer Objective - Vital Signs Vital signs: Vital Signs Temp 97.3 F L 05/07/22 07:41 Pulse 64 05/07/22 07:41 Resp 16 05/07/22 07:41 BP 125/76 05/07/22 07:41 Pulse Ox 97 05/07/22 07:41 FiO2 Intake & Output 05/06/22 05/07/22 05/07/22 18:59 06:59 18:59 Other: Voiding Method Toilet # Voids 1 1 # Bowel Movements 0 - Exam GENERAL DESCRIPTION: An elderly male lying in bed in no distress RESPIRATORY SYSTEM: Unlabored breathing , decreased breath sounds at bases HEART: S1 S2 regular rate and rhythm , ABDOMEN: Soft , no tenderness EXTREMITIES: Left foot wound is currently dressed no drainage on the dressing - Labs CBC & Chem 7: 05/07/22 05:42 05/08/22 06:56 Labs: Abnormal Lab Results - Last 24 Hours (Table) 05/06/22 05/06/22 05/06/22 Range/Units 11:42 17:54 20:18 RBC (4.30-5.90) m/uL MCV (80.0-100.0) fL Plt Count (150-450) k/uL BUN (9-20) mg/dL Creatinine (0.66-1.25) mg/dL Glucose (74-99) mg/dL POC Glucose (mg/dL) 201 H 151 H 166 H (75-99) mg/dL C-Reactive Protein (<1.0) mg/dL 05/07/22 05/07/22 05/07/22 Range/Units 05:42 05:42 06:58 RBC 4.27 L (4.30-5.90) m/uL MCV 100.6 H (80.0-100.0) fL Plt Count 48 L (150-450) k/uL BUN 7 L (9-20) mg/dL Creatinine 0.48 L (0.66-1.25) mg/dL Glucose 122 H (74-99) mg/dL POC Glucose (mg/dL) 129 H (75-99) mg/dL C-Reactive Protein 4.8 H (<1.0) mg/dL Microbiology - Last 24 Hours (Table) 05/05/22 11:05 Blood Culture - Preliminary Blood No Growth after 24 hours 05/05/22 10:50 Blood Culture - Preliminary Blood No Growth after 24 hours Assessment and Plan (1) Bacteremia Current Visit: Yes Status: Acute Code(s): R78.81 - BACTEREMIA SNOMED Code(s): 2046556 Plan: 1patient with gram-positive bacteremia source is likely left foot diabetic foot infection and the concerning for possible underlying osteomyelitis as the patient did have a chronic nonhealing wound for many months. 2blood cultures repeat has been negative. 3bone scan came back positive suspicious for ostomy myelitis involving the left foot as well as right second toe 4blood cultures with MSSA antibiotic patient is currently on cefazolin patient will need at least 6 weeks of antibiotics however the patient wants to go to the infusion clinic and needs a daily dose, Rocephin is not recommended for bacteremia has antibiotic will be switched over to daptomycin 6mg/ KG daily on discharge Time with Patient: Less than 30
[2022-05-08 11:21] LABS: Glucose,Whole Blood 170 mg/dL (75-99)
[2022-05-08] MEDS ORDERED: DAPTOmycin 500 MG in SODIUM CHLORIDE 0.9% 50 ML IVPB SCH (12:00)
--- NOTE | 2022-05-08 12:58 | P.PN ---
Subjective Progress Note Date: 05/08/22 Principal diagnosis: Bacteremia Patient is a 72-year-old male with a past medical history significant for diabetes mellitus and nonhealing ulcer to his left foot plantar area and recent self debridement of his right second toe presented to the hospital with bacteremia. On today's evaluation is 05/08/2022, the patient continues to be afebrile, the patient is breathing comfortably on room air, patient denies chest pain shortness of breath or cough , the patient denies abdominal pain no diarrhea and no pain to his left foot ulcer Objective - Vital Signs Vital signs: Vital Signs Temp 99.0 F 05/08/22 08:00 Pulse 67 05/08/22 08:00 Resp 18 05/08/22 08:00 BP 145/77 05/08/22 08:00 Pulse Ox 97 05/08/22 08:00 FiO2 Intake & Output 05/07/22 05/08/22 05/08/22 18:59 06:59 18:59 Intake Total 480 Balance 480 Intake: Oral 480 Other: # Voids 1 2 - Exam GENERAL DESCRIPTION: An elderly male lying in bed in no distress RESPIRATORY SYSTEM: Unlabored breathing , decreased breath sounds at bases HEART: S1 S2 regular rate and rhythm , ABDOMEN: Soft , no tenderness EXTREMITIES: Left foot wound is currently dressed no drainage on the dressing - Labs CBC & Chem 7: 05/07/22 05:42 05/08/22 06:56 Labs: Abnormal Lab Results - Last 24 Hours (Table) 05/07/22 05/07/22 05/07/22 Range/Units 05:42 11:25 16:35 ESR 53 H (0-15) mm/hr POC Glucose (mg/dL) 167 H 163 H (75-99) mg/dL Vitamin B12 (200.0-944.0) pg/mL 05/07/22 05/08/22 05/08/22 Range/Units 20:58 06:56 07:12 ESR (0-15) mm/hr POC Glucose (mg/dL) 169 H 117 H (75-99) mg/dL Vitamin B12 >2000.0 H (200.0-944.0) pg/mL Microbiology - Last 24 Hours (Table) 05/07/22 05:42 Blood Culture - Preliminary Blood No Growth after 24 hours 05/05/22 11:05 Blood Culture - Preliminary Blood No Growth after 48 hours 05/05/22 10:50 Blood Culture - Preliminary Blood No Growth after 48 hours Assessment and Plan (1) Bacteremia Current Visit: Yes Status: Acute Code(s): R78.81 - BACTEREMIA SNOMED Code(s): 0135284 Plan: 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 as well as right second toe 2patient has opted for outpatient infusion clinic for antibiotic therapy and use a daily dose antibiotic has been switched to daptomycin 6 mg per KG daily which will be continued for total of 6 weeks along with weekly monitoring of blood work and a close outpatient follow-up Time with Patient: Less than 30
[2022-05-08 14:27] LABS: INR 1.1 (<1.2); Partial Thromboplastin Time 24.6 sec (22.0-30.0); Prothrombin Time 11.4 sec (9.0-12.0)
[2022-05-08 14:38] LABS: Basophils % (A) 0 %; Eosinophils # (A) 0.1 k/uL (0-0.7); Eosinophils % (A) 2 %; HCT 42.3 % (39.0-53.0); HGB 13.4 gm/dL (13.0-17.5); Lymphocytes # (A) 0.7 k/uL (1.0-4.8); Lymphocytes % (A) 22 %; MCH 32.1 pg (25.0-35.0); MCHC 31.6 g/dL (31.0-37.0); MCV 101.5 fL (80.0-100.0); Mean Platelet Volume 10.5; Monocytes # (A) 0.2 k/uL (0-1.0); Monocytes % (A) 7 %; Neutrophils # (A) 2.1 k/uL (1.3-7.7); Neutrophils % (A) 65 %; RBC 4.16 m/uL (4.30-5.90); RDW 13.1 % (11.5-15.5); WBC 3.3 k/uL (3.8-10.6)
[2022-05-08 14:40] LABS: ALT 26 U/L (4-49); AST 78 U/L (17-59); African American GFR (CKD) >90 (>60 ml/min/1.73 sqM); Albumin 3.7 g/dL (3.5-5.0); Albumin/Globulin Ratio 1.1; Alkaline Phosphatase 244 U/L (38-126); Anion Gap 12 mmol/L; Blood Urea Nitrogen 10 mg/dL (9-20); Calcium 9.2 mg/dL (8.4-10.2); Carbon Dioxide 21 mmol/L (22-30); Chloride 103 mmol/L (98-107); Globulin 3.3 g/dL; Glucose 268 mg/dL (74-99); Magnesium 1.7 mg/dL (1.6-2.3); Non-African American GFR(CKD) >90 (>60 ml/min/1.73 sqM); Potassium 4.5 mmol/L (3.5-5.1); Sodium 136 mmol/L (137-145); Total Bilirubin 0.9 mg/dL (0.2-1.3)
[2022-05-08 14:42] LABS: Platelet Count 52 k/uL (150-450)
[2022-05-08 15:09] VITALS: BP 132/68; RESP 16; TEMP 98.4
--- NOTE | 2022-05-08 18:39 | P.DS ---
Providers Date of admission: 05/05/22 10:55 Expected date of discharge: 05/08/22 Attending physician: Ernesto Neri Consults: 05/05/22 11:04 Consult Physician Urgent Consulting Provider: Brenna Jonas Consult Reason/Comments: bacteremia Do you want consulting provider notified?: Yes 05/07/22 17:00 Consult Physician Routine Consulting Provider: Bang Moise Consult Reason/Comments: Thrombocytopenia Do you want consulting provider notified?: Yes [facility] Course: Chief Complaint: Positive blood cultures This is a pleasant 72-year-old patient, follows with Dr. Mcdermott. Chronic stable medical conditions include diabetes, hypertension, hyperlipidemia, peripheral neuropathy., Left foot plantar wound for which she follows at the wound care center per Dr. mota. Arterial waveform study done in October 2021. That showed adequate circulation. Yesterday morning patient started out with fever or chills. [place] dizzy lightheaded. He came to the ER. [place] uncomfortable in the hospital bed and left AMA. He was called in this morning and the blood cultures turn positive. And came back in again. Patient did say that about a week ago he had pulled out his right foot second nail with calipers. Area somewhat raw. Because of neuropathy he does not feel any pain. No change in his bowel habit that is d aily. No urinary symptoms. No respiratory symptoms. Appetite is fair. Patient is given cefepime and vancomycin in the ER. May 06: Patient underwent for bone scan today. 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 No fever no chills. No pain. Antibiotic is being switched over to IV Ancef. May 07: IV Ancef. No pain. PICC line inserted. Repeat blood cultures a negative to allow. Discussed with patient. INVESTIGATIONS, reviewed in the clinical context: May 07: White count 4.6 hemoglobin 13.7 platelets 48 potassium 4.2 creatinine 0.48 Bone scan: Possible osteomyelitis involving the distal phalanx of the right second digit and the left first digit. White count 6 hemoglobin 13.9 platelets 39 potassium 4.1 creatinine 0.55 lactic acid 2.1 Blood culture from May 04: Staph aureus May 04: COVID 19: Influenza type A, type B: Not detected EKG tracing personally reviewed by me-sinus tachycardia. Weight 123. Right bundle-branch block Chest x-ray film personally reviewed by me-lung frausto clear Foot x-ray: Diffuse osteopenia and arthropathy. No evidence of destructive changes Platelets 87 in 2013. Assessment and plan: -Sepsis with positive blood cultures with staph aureus. Likely source of the right foot second toe from patient having pulled out his toenail. Antibiotics changed to IV Ancef.. Discussed with patient. -Left foot plantar wound secondary to diabetes being followed by Dr. mota in the wound care center. Continue dressing changes as before -Diabetes mellitus type 2, chronically on insulin Levemir 18 units subcu daily at bedtime. NovoLog 3 units with meals. Accu- Cheks. -Essential hypertension Zestril 10 mg a day -Hyperlipidemia Pravachol 40 mg daily at bedtime -Diabetic peripheral neuropathy Gabapentin 300 mg twice a day. Given that patient has no painful cutback to 300 mg daily at bedtime -Thrombocytopenia, platelets 87 in 2013. 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 Consultation hematology.. IV Ancef. Got PICC line. Discussed with patient. Hematology consulted. 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 as well as right second toe 2patient has opted for outpatient infusion clinic for antibiotic therapy and use a daily dose antibiotic has been switched to daptomycin 6 mg per KG daily wh ich will be continued for total of 6 weeks along with weekly monitoring of blood work and a close outpatient follow-up Patient Condition at Discharge: Stable Plan - Discharge Summary Discharge Rx Participant: Yes New Discharge Prescriptions: New DAPTOmycin [Cubicin] 600 mg IV DAILY #42 each DAPTOmycin [Cubicin] 500 mg IVPB Q24HR each Continue lisinopriL [Zestril] 10 mg PO DAILY Cholecalciferol [Vitamin D3 (25 Mcg = 1000 Iu)] 25 mcg PO DAILY Liraglutide [Victoza 2-Chemo] 0.6 mg SQ DAILY Gabapentin 300 mg PO BID Glucosam/Chond/Hyalu/Cf Borate [Move Free Joint Health Tablet] 1 tab PO DAILY Cyanocobalamin [Vitamin B-12] 500 mcg PO DAILY Insulin Aspart Protam & Aspart [NovoLOG MIX 70-30 Flexpen] 40 unit SQ AC- BRKFST Insulin Aspart Protam & Aspart [NovoLOG MIX 70-30 Flexpen] 50 unit SQ AC- SUPPER Discontinued Pravastatin Sodium [Pravachol] 40 mg PO HS Discharge Medication List Cholecalciferol [Vitamin D3 (25 Mcg = 1000 Iu)] 25 mcg PO DAILY 05/04/22 [History] Cyanocobalamin [Vitamin B-12] 500 mcg PO DAILY 05/04/22 [History] Gabapentin 300 mg PO BID 05/04/22 [History] Glucosam/Chond/Hyalu/Cf Borate [Move Free Joint Health Tablet] 1 tab PO DAILY 05/04/22 [History] Insulin Aspart Protam & Aspart [NovoLOG MIX 70-30 Flexpen] 40 unit SQ AC-BRKFST 05/04/22 [History] Insulin Aspart Protam & Aspart [NovoLOG MIX 70-30 Flexpen] 50 unit SQ AC-SUPPER 05/04/22 [History] Liraglutide [Victoza 2-Chemo] 0.6 mg SQ DAILY 05/04/22 [History] lisinopriL [Zestril] 10 mg PO DAILY 05/04/22 [History] DAPTOmycin [Cubicin] 500 mg IVPB Q24HR each 05/08/22 [Rx] DAPTOmycin [Cubicin] 600 mg IV DAILY #42 each 05/08/22 [Rx] Follow up Appointment(s)/Referral(s): Jordan Mcdermott DO [Primary Care Provider] - 1-2 days [facility],Infusion [NON-STAFF] - 05/09/22 10:00 am ([facility] will infuse your antibiotics daily in the office. ) Brenna Jonas MD [STAFF PHYSICIAN] - 1 Week Ambulatory/Diagnostic Orders: Basic Metabolic Panel [LAB.AMB] Location: None Selected C Reactive Protein [LAB.AMB] Location: None Selected Complete Blood Count w/diff [LAB.AMB] Location: None Selected Erythrocyte Sedimentation Rate [LAB.AMB] Location: None Selected Miscellaneous Lab Order [LAB.AMB] Location: None Selected Patient Instructions/Handouts: Bacteremia (DC) Discharge Disposition: HOME WITH HOME HEALTH SERVICES
[2022-05-10 08:43] LABS: Free Kappa Lt Chain Qnt, Serum 3.41 mg/dL (0.33-1.94); Free Lambda Lt Chain Qnt, Seru 2.71 mg/dL (0.57-2.63)
[2022-05-12 06:40] LABS: Methylmalonic Acid 0.11 umol/L (<0.40)
== END 2022-05-08 15:09 | disposition home health service (06) | DRG 872 ==
LOC: EC 10:33 → 4SSUR 10:55
PROVIDERS: ADMIT Hospitalist; ATTEND Hospitalist
PROC: B548ZZA Ultrasonography of Superior Vena Cava, Guidance (ICD-10-PCS; 2022-05-07)
PROC: B5181ZA Fluoroscopy of Superior Vena Cava using Low Osmolar Contrast, Guidance (ICD-10-PCS; 2022-05-07)
PROC: 02HV33Z Insertion of Infusion Device into Superior Vena Cava, Percutaneous Approach (ICD-10-PCS; principal; 2022-05-07 12:45)
DX: A41.01 Sepsis due to Methicillin susceptible Staphylococcus aureus (principal); M86.8X7 Other osteomyelitis, ankle and foot; D69.3 Immune thrombocytopenic purpura; E11.42 Type 2 diabetes mellitus with diabetic polyneuropathy; I10 Essential (primary) hypertension; K76.0 Fatty (change of) liver, not elsewhere classified; E11.628 Type 2 diabetes mellitus with other skin complications; E78.5 Hyperlipidemia, unspecified; E11.621 Type 2 diabetes mellitus with foot ulcer; E11.69 Type 2 diabetes mellitus with other specified complication; L97.529 Non-pressure chronic ulcer of other part of left foot with unspecified severity; M12.9 Arthropathy, unspecified; M85.871 Other specified disorders of bone density and structure, right ankle and foot; Z79.4 Long term (current) use of insulin; I45.10 Unspecified right bundle-branch block; Z79.899 Other long term (current) drug therapy; Z79.2 Long term (current) use of antibiotics; Z53.29 Procedure and treatment not carried out because of patient's decision for other reasons
CPT/HCPCS: 36415; 36573; 76700; 78315; 80048; 80053; 82565; 82607; 82747; 83605; 83735; 83883; 83921; 84165; 85025; 85610; 85652; 85730; 86038; 86140; 86334; 86431; 87040; 94760; 96365; 96366; 96367; 99284

== ENCOUNTER 2022-06-07 10:42 | Emergency (ER) | payer MEDICARE ==
[2022-06-07 10:46] VITALS: BP 159/82; PULSE 74; RESP 20; TEMP 98.1
--- NOTE | 2022-06-07 11:38 | ED ---
Recheck HPI - General Chief Complaint: Recheck/Abnormal Lab/Rx Stated Complaint: sent by doc for labs Time Seen by Provider: 06/07/22 11:14 Source: patient, RN notes reviewed Mode of arrival: ambulatory Limitations: no limitations - History of Present Illness Initial Comments: This is a 72-year-old male who presents to the emergency department for possible left arm infection. Patient recently had a PICC line removed and the nurse noted that there was some drainage on the bandage. She spoke with Dr. Waddell who advised he come to the emergency department for blood cultures to see if there may be an active infection. He was receiving IV Ancef for sepsis and an infection in the right foot. Currently denies any fevers or pain. Denies any fevers, chills, sore throat, cough, dyspnea, chest pain, palpitations, abdominal pain, nausea, vomiting, diarrhea, back pain, or headaches. MD Complaint: other (Wound check and blood cultures) - Related Data Home Medications Medication Instructions Recorded Confirmed Cholecalciferol [Vitamin D3 (25 25 mcg PO DAILY 05/04/22 06/07/22 Mcg = 1000 Iu)] Cyanocobalamin [Vitamin B-12] 500 mcg PO DAILY 05/04/22 06/07/22 Gabapentin 300 mg PO BID 05/04/22 06/07/22 Glucosam/Chond/Hyalu/Cf Borate 1 tab PO DAILY 05/04/22 06/07/22 [Move Free SPOC Medical Health Tablet] Insulin Aspart Prot/Insuln Asp 40 unit SQ AC-BRKFST 05/04/22 06/07/22 [NovoLOG MIX 70-30 Flexpen] Insulin Aspart Prot/Insuln Asp 50 unit SQ AC-SUPPER 05/04/22 06/07/22 [NovoLOG MIX 70-30 Flexpen] Liraglutide [Victoza 2-Chemo] 0.6 mg SQ DAILY 05/04/22 06/07/22 lisinopriL [Zestril] 10 mg PO DAILY 05/04/22 06/07/22 Allergies Allergy/AdvReac Type Severity Reaction Status Date / Time No Known Allergies Allergy Verified 06/07/22 12:56 Review of Systems ROS Statement: Those systems with pertinent positive or pertinent negative responses have been documented in the HPI. ROS Other: All systems not noted in ROS Statement are negative. Past Medical History Past Medical History: Diabetes Mellitus, Hypertension History of Any Multi-Drug Resistant Organisms: None Reported Past Surgical History: Orthopedic Surgery Past Psychological History: No Psychological Hx Reported Smoking Status: Never smoker Past Alcohol Use History: Occasional Past Drug Use History: None Reported General Exam Limitations: no limitations General appearance: alert, in no apparent distress Head exam: Present: atraumatic, normocephalic, normal inspection Respiratory exam: Present: normal lung sounds bilaterally. Absent: respiratory distress, wheezes, rales, rhonchi, stridor Cardiovascular Exam: Present: regular rate, normal rhythm, normal heart sounds. Absent: systolic murmur, diastolic murmur, rubs, gallop, clicks Neurological exam: Present: alert, oriented X3, CN II-XII intact Psychiatric exam: Present: normal affect, normal mood Skin exam: Present: other (Open area on the inner surface of the left upper arm consistent with recent PICC line removal. There may be a minor active serious versus purulent drainage. No increased heat or surrounding erythema. The area is nontender to palpation.) Course Vital Signs 06/07/22 10:44 Temperature 98.1 F Pulse Rate 74 Respiratory 20 Rate Blood Pressure 159/82 O2 Sat by Pulse 97 Oximetry Medical Decision Making - Medical Decision Making This is a 72-year-old male who presents to the emergency department for blood cultures. Lab work did not reveal any significant or actionable changes from prior. Blood cultures and wound culture were obtained. Patient will follow-up with Dr. Waddell as instructed. Return precautions reviewed in depth, the patient is instructed to return to the emergency department with any new, worsening, or concerning symptoms, such as increasing erythema, tenderness, swelling, drainage, or fevers, all of which suggest an infection. Patient verbalized understanding. This case was discussed in detail with the attending ED physician. Presentation, findings, and treatment plan discussed in detail as well. - Lab Data Result diagrams: 06/07/22 11:35 06/07/22 11:35 Lab Results 06/07/22 06/07/22 06/07/22 Range/Units 11:35 11:35 11:35 WBC 3.3 L (3.8-10.6) k/uL RBC 4.56 (4.30-5.90) m/uL Hgb 15.0 (13.0-17.5) gm/dL Hct 46.5 (39.0-53.0) % MCV 101.9 H (80.0-100.0) fL MCH 32.9 (25.0-35.0) pg MCHC 32.2 (31.0-37.0) g/dL RDW 15.0 (11.5-15.5) % Plt Count 43 L (150-450) k/uL MPV 11.2 Neutrophils % 69 % Lymphocytes % 20 % Monocytes % 6 % Eosinophils % 2 % Basophils % 0 % Neutrophils # 2.3 (1.3-7.7) k/uL Lymphocytes # 0.7 L (1.0-4.8) k/uL Monocytes # 0.2 (0-1.0) k/uL Eosinophils # 0.1 (0-0.7) k/uL Basophils # 0.0 (0-0.2) k/uL Manual Slide Review Performed Hypochromasia Slight Macrocytosis Slight Sodium 139 (137-145) mmol/L Potassium 4.5 (3.5-5.1) mmol/L Chloride 107 (98-107) mmol/L Carbon Dioxide 22 (22-30) mmol/L Anion Gap 10 mmol/L BUN 13 (9-20) mg/dL Creatinine 0.53 L (0.66-1.25) mg/dL Est GFR (CKD-EPI)AfAm >90 (>60 ml/min/1.73 sqM) Est GFR (CKD-EPI)NonAf >90 (>60 ml/min/1.73 sqM) Glucose 227 H (74-99) mg/dL Plasma Lactic Acid Tyron 1.9 (0.7-2.0) mmol/L Calcium 10.3 H (8.4-10.2) mg/dL Total Bilirubin 1.9 H (0.2-1.3) mg/dL AST 142 H (17-59) U/L ALT 39 (4-49) U/L Alkaline Phosphatase 281 H (38-126) U/L Total Protein 8.0 (6.3-8.2) g/dL Albumin 4.2 (3.5-5.0) g/dL Disposition Clinical Impression: History of recent acute infection Disposition: HOME SELF-CARE Additional Instructions: Return to the emergency department with any new, worsening, or concerning symptoms, specifically, if you develop any fevers, surrounding redness, pain, or drainage from the site where the PICC line was placed. Is patient prescribed a controlled substance at d/c from ED?: No Referrals: Jordan Mcdermott DO [Primary Care Provider] - 1-2 days
[2022-06-07 12:03] LABS: Basophils % (A) 0 %; Eosinophils # (A) 0.1 k/uL (0-0.7); Eosinophils % (A) 2 %; HCT 46.5 % (39.0-53.0); Hypochromasia Slight; Lymphocytes # (A) 0.7 k/uL (1.0-4.8); Lymphocytes % (A) 20 %; MCH 32.9 pg (25.0-35.0); MCHC 32.2 g/dL (31.0-37.0); MCV 101.9 fL (80.0-100.0); Macrocytosis Slight; Mean Platelet Volume 11.2; Monocytes # (A) 0.2 k/uL (0-1.0); Monocytes % (A) 6 %; Neutrophils # (A) 2.3 k/uL (1.3-7.7); Neutrophils % (A) 69 %; RBC 4.56 m/uL (4.30-5.90); WBC 3.3 k/uL (3.8-10.6)
[2022-06-07 12:05] LABS: ALT 39 U/L (4-49); AST 142 U/L (17-59); African American GFR (CKD) >90 (>60 ml/min/1.73 sqM); Albumin 4.2 g/dL (3.5-5.0); Alkaline Phosphatase 281 U/L (38-126); Anion Gap 10 mmol/L; Blood Urea Nitrogen 13 mg/dL (9-20); Calcium 10.3 mg/dL (8.4-10.2); Carbon Dioxide 22 mmol/L (22-30); Chloride 107 mmol/L (98-107); Glucose 227 mg/dL (74-99); Non-African American GFR(CKD) >90 (>60 ml/min/1.73 sqM); Potassium 4.5 mmol/L (3.5-5.1); Sodium 139 mmol/L (137-145); Total Bilirubin 1.9 mg/dL (0.2-1.3)
[2022-06-07 12:40] LABS: Platelet Count 43 k/uL (150-450)
== END 2022-06-07 13:26 | disposition home or self-care (01) ==
LOC: EC 10:42
DX: R79.9 Abnormal finding of blood chemistry, unspecified (principal); I10 Essential (primary) hypertension; E11.9 Type 2 diabetes mellitus without complications; Z86.19 Personal history of other infectious and parasitic diseases; Z79.4 Long term (current) use of insulin; Z79.899 Other long term (current) drug therapy; Z79.84 Long term (current) use of oral hypoglycemic drugs
CPT/HCPCS: 36415; 80053; 83605; 85025; 87040; 87070; 87205; 99283

== ENCOUNTER 2022-07-22 15:48 | Inpatient (IN) | payer MEDICARE ==
[2022-07-22 18:00] LABS: Albumin 3.9 g/dL (3.5-5.0); Potassium 5.2 mmol/L (3.5-5.1); Total Bilirubin 11.5 mg/dL (0.2-1.3); Total Protein 7.3 g/dL (6.3-8.2)
[2022-07-22 18:03] LABS: Anisocytosis Slight; Basophils % (A) 0 %; Calcium 13.9 mg/dL (8.4-10.2); Eosinophils # (A) 0.1 k/uL (0-0.7); Eosinophils % (A) 1 %; HCT 47.6 % (39.0-53.0); HGB 14.1 gm/dL (13.0-17.5); Hypochromasia Marked; Lymphocytes # (A) 0.9 k/uL (1.0-4.8); Lymphocytes % (A) 14 %; MCH 30.5 pg (25.0-35.0); MCHC 29.5 g/dL (31.0-37.0); MCV 103.2 fL (80.0-100.0); Macrocytosis Marked; Mean Platelet Volume 9.6; Monocytes # (A) 0.6 k/uL (0-1.0); Monocytes % (A) 9 %; Neutrophils % (A) 72 %; RBC 4.61 m/uL (4.30-5.90); RDW 19.6 % (11.5-15.5); WBC 6.9 k/uL (3.8-10.6)
[2022-07-22 18:06] LABS: Platelet Count 59 k/uL (150-450)
[2022-07-22 18:23] LABS: Target Cells Present
--- NOTE | 2022-07-22 18:36 | ED ---
General Adult HPI - General Chief complaint: Weakness Stated complaint: ams, dehydration Time Seen by Provider: 07/22/22 18:14 Source: patient, RN notes reviewed, old records reviewed Mode of arrival: ambulatory Limitations: no limitations - History of Present Illness Initial comments: 72-year-old male with recent diagnosis of liver cirrhosis and liver mass presenting for evaluation of increased jaundice and generalized weakness. Patient has had a very poor appetite. He was seen in this emergency Department transferred to [facility] within the past 2 weeks. He received medical treatment there is no procedures were performed. He was awaiting the results of the cancer board to inform of the complete diagnosis and treatment plan. Patient had been seen by the primary care physician was noted to be more jaundice. He was sent to the emergency department for evaluation. - Related Data Home Medications Medication Instructions Recorded Confirmed Cholecalciferol [Vitamin D3 (25 25 mcg PO DAILY 05/04/22 07/11/22 Mcg = 1000 Iu)] Cyanocobalamin [Vitamin B-12] 500 mcg PO DAILY 05/04/22 07/11/22 Gabapentin 300 mg PO BID 05/04/22 07/11/22 Glucosam/Chond/Hyalu/Cf Borate 1 tab PO DAILY 05/04/22 07/11/22 [Move Free Startist Tablet] Insulin Aspart Prot/Insuln Asp 40 unit SQ AC-BRKFST 05/04/22 07/11/22 [NovoLOG MIX 70-30 Flexpen] Insulin Aspart Prot/Insuln Asp 50 unit SQ AC-SUPPER 05/04/22 07/11/22 [NovoLOG MIX 70-30 Flexpen] Liraglutide [Victoza 2-Chemo] 0.6 mg SQ DAILY 05/04/22 07/11/22 lisinopriL [Zestril] 10 mg PO DAILY 05/04/22 07/11/22 Pravastatin Sodium [Pravachol] 40 mg PO HS 07/11/22 07/11/22 Allergies Allergy/AdvReac Type Severity Reaction Status Date / Time No Known Allergies Allergy Verified 07/22/22 16:05 Review of Systems ROS Statement: Those systems with pertinent positive or pertinent negative responses have been documented in the HPI. ROS Other: All systems not noted in ROS Statement are negative. Past Medical History Past Medical History: Cancer, Diabetes Mellitus, Hypertension, Liver Disease Additional Past Medical History / Comment(s): liver cancer and cirrhosis History of Any Multi-Drug Resistant Organisms: None Reported Past Surgical History: Orthopedic Surgery Past Psychological History: No Psychological Hx Reported Smoking Status: Never smoker Past Alcohol Use History: Occasional Past Drug Use History: None Reported General Exam Limitations: no limitations General appearance: in no apparent distress, lethargic Head exam: Present: atraumatic, normocephalic Eye exam: Present: PERRL, scleral icterus ENT exam: Present: mucous membranes dry Neck exam: Present: normal inspection. Absent: tenderness, meningismus Respiratory exam: Present: normal lung sounds bilaterally. Absent: respiratory distress Cardiovascular Exam: Present: normal rhythm, bradycardia GI/Abdominal exam: Present: soft, distended. Absent: tenderness, guarding, rebound Extremities exam: Present: normal capillary refill Neurological exam: Present: alert. Absent: motor sensory deficit Psychiatric exam: Present: flat affect Skin exam: Present: other (Jaundice). Absent: cyanosis, diaphoretic Course Vital Signs 07/22/22 07/22/22 16:02 18:57 Temperature 97.8 F 97.8 F Pulse Rate 51 L 53 L Respiratory 16 18 Rate Blood Pressure 103/62 103/64 O2 Sat by Pulse 98 100 Oximetry - Reevaluation(s) Reevaluation #1: 07/22/22 18:33 Records will be requested from [facility] regarding recent admission. EKG Findings - EKG Comments: EKG Findings:: EKG: Sinus bradycardia, right bundle branch block, rate of 48, TX interval 149, QRS duration 1:30, QTC [address] segment elevation. Medical Decision Making - Medical Decision Making 72-year-old male presenting with increased weakness, poor appetite, recent diagnosis of liver cirrhosis and liver mass. Patient's is jaundice with scleral icterus. He does appear dehydrated. Has no abdominal pain or tenderness. His laboratory testing reveals normal white blood cell count, stable hemoglobin, thrombocytopenia. He has elevated calcium, bilirubin, AST and ALT as well as an ammonia of 74. He is treated with IV fluids and lactulose. He be admitted to [facility], case discussed with Perla. - Lab Data Result diagrams: 07/22/22 17:17 07/22/22 17:17 Lab Results 07/22/22 07/22/22 07/22/22 Range/Units 17:17 17:17 18:34 WBC 6.9 (3.8-10.6) k/uL RBC 4.61 (4.30-5.90) m/uL Hgb 14.1 (13.0-17.5) gm/dL Hct 47.6 (39.0-53.0) % MCV 103.2 H (80.0-100.0) fL MCH 30.5 (25.0-35.0) pg MCHC 29.5 L (31.0-37.0) g/dL RDW 19.6 H (11.5-15.5) % Plt Count 59 L (150-450) k/uL MPV 9.6 Neutrophils % 72 % Lymphocytes % 14 % Monocytes % 9 % Eosinophils % 1 % Basophils % 0 % Neutrophils # 5.0 (1.3-7.7) k/uL Lymphocytes # 0.9 L (1.0-4.8) k/uL Monocytes # 0.6 (0-1.0) k/uL Eosinophils # 0.1 (0-0.7) k/uL Basophils # 0.0 (0-0.2) k/uL Manual Slide Review Performed Hypochromasia Marked Anisocytosis Slight Macrocytosis Marked A Target Cells Present Sodium 134 L (137-145) mmol/L Potassium 5.2 H (3.5-5.1) mmol/L Chloride 99 (98-107) mmol/L Carbon Dioxide 19 L (22-30) mmol/L Anion Gap 16 mmol/L BUN 50 H (9-20) mg/dL Creatinine 1.20 (0.66-1.25) mg/dL Est GFR (CKD-EPI)AfAm 70 (>60 ml/min/1.73 sqM) Est GFR (CKD-EPI)NonAf 61 (>60 ml/min/1.73 sqM) Glucose 112 H (74-99) mg/dL Calcium 13.9 H* (8.4-10.2) mg/dL Total Bilirubin 11.5 H (0.2-1.3) mg/dL AST 434 H (17-59) U/L ALT 65 H (4-49) U/L Alkaline Phosphatase 377 H (38-126) U/L Ammonia 74 H (<30) umol/L Total Protein 7.3 (6.3-8.2) g/dL Albumin 3.9 (3.5-5.0) g/dL Disposition Clinical Impression: Thrombocytopenia, Liver masses, Hypercalcemia, Hyperammonemia, Liver failure Disposition: ADMITTED IP TO THIS HOSP Condition: Stable Is patient prescribed a controlled substance at d/c from ED?: No Referrals: Jordan Mcdermott DO [Primary Care Provider] - 1-2 days Time of Disposition: 19:40
[2022-07-22] MEDS: SODIUM CHLORIDE 0.9% 1,000 ML IV SCH (19:01)
[2022-07-22] MEDS ORDERED: LACTULOSE 20 GM/30 ML CUP PO ONE (19:36)
[2022-07-22] MEDS ORDERED: NALOXONE 0.4 MG/ML 1 ML VIAL IV PRN (19:37)
[2022-07-22 19:42] LABS: INR 1.3 (<1.2)
[2022-07-22 19:43] LABS: Prothrombin Time 13.9 sec (9.0-12.0)
[2022-07-22 23:17] LABS: Amorphous Sediment,Urine Rare /hpf; Appearance,Urine Cloudy (Clear); Bacteria,Urine Rare /hpf; Bilirubin,Urine 2+ (Negative); Blood,Urine Trace (Negative); Color,Urine Orange; Glucose,Urine (UA) Negative (Negative); Hyaline Casts,Urine 90 /lpf (0-2); Ketones,Urine Negative (Negative); Leukocyte Esterase,Urine Small (Negative); Mucus,Urine Rare /hpf; Nitrite,Urine Negative (Negative); PH, Urine 5.5 (5.0-8.0); Protein,Urine 1+ (Negative); RBC,Urine 2 /hpf (0-5); Specific Gravity,Urine 1.016 (1.001-1.035); Squamous Epithelial Cell,Urine 2 /hpf (0-4); WBC,Urine 36 /hpf (0-5)
[2022-07-23] MEDS: SODIUM CHLORIDE 0.9% 1,000 ML IV SCH ×2 (07:56→20:11)
[2022-07-23] MEDS ORDERED: LACTULOSE 20 GM/30 ML CUP PO SCH (09:00)
[2022-07-23] MEDS ORDERED: PANTOPRAZOLE 40 MG/10 ML VIAL IV SCH (09:00)
[2022-07-23 10:39] LABS: INR 1.3 (0.90-1.11); Prothrombin Time 14.1 sec (9.9-11.9)
[2022-07-23 11:34] LABS: African American GFR (CKD) 58.2 (60.0-200.0); Albumin 3.7 g/dL (3.8-4.9); Albumin/Globulin Ratio 1.37 (1.60-3.17); Anion Gap 12.3 mmol/L (10.00-18.00); BUN/Creat Ratio 37.29 Ratio (12.00-20.00); Blood Urea Nitrogen 52.2 mg/dL (9.0-27.0); Calcium 14.5 mg/dL (8.7-10.3); Carbon Dioxide 20.7 mmol/L (20.0-27.5); Globulin 2.7 g/dL (1.6-3.3); Non-African American GFR(CKD) 50.2 (60.0-200.0); Potassium 5.4 mmol/L (3.5-5.5); Total Bilirubin 11.8 mg/dL (0.30-1.20); Total Protein 6.4 g/dL (6.2-8.2)
[2022-07-23 13:04] LABS: Basophils # (A) 0.01 X 10*3/uL (0.00-0.10); Basophils % (A) 0.2 %; Eosinophils # (A) 0.07 X 10*3/uL (0.04-0.35); Eosinophils % (A) 1.2 %; HCT 40.7 % (39.6-50.0); HGB 13.1 g/dL (13.0-17.0); Immature Grans, Automated 0.3 %; Lymphocytes # (A) 0.78 X 10*3/uL (0.90-5.00); Lymphocytes % (A) 13.6 %; MCH 30.8 pg (27.0-32.0); MCHC 32.2 g/dL (32.0-37.0); MCV 95.5 fL (80.0-97.0); Monocytes # (A) 0.73 X 10*3/uL (0.20-1.00); Monocytes % (A) 12.7 %; NRBC Per 100 WBC 0 /100 WBCS (0.0-0.0); Neutrophils # (A) 4.13 X 10*3/uL (1.80-7.70); Platelet Count 52 X 10*3/uL (140-440); RBC 4.26 X 10*6/uL (4.40-5.60); RDW 22.5 % (11.5-14.5); WBC 5.74 X 10*3/uL (4.50-10.00)
[2022-07-23 13:05] LABS: Immature Platelet Fraction 6.8 % (1.1-6.1)
[2022-07-23] MEDS: LACTULOSE 20 GM/30 ML CUP PO SCH ×2 (16:44→22:00)
[2022-07-23 17:47] LABS: Glucose,Whole Blood 98 mg/dL (70-110)
[2022-07-23 17:58] LABS: Anisocytosis Moderate; Basophils % (A) 0 %; Eosinophils # (A) 0.1 k/uL (0-0.7); Eosinophils % (A) 1 %; HCT 45.9 % (39.0-53.0); HGB 13.8 gm/dL (13.0-17.5); Hypochromasia Marked; Lymphocytes % (A) 14 %; MCH 31.3 pg (25.0-35.0); MCHC 30.1 g/dL (31.0-37.0); Macrocytosis Marked; Mean Platelet Volume 9.6; Monocytes # (A) 0.5 k/uL (0-1.0); Monocytes % (A) 7 %; Neutrophils # (A) 5.6 k/uL (1.3-7.7); Neutrophils % (A) 75 %; Poikilocytosis Slight; RBC 4.42 m/uL (4.30-5.90); WBC 7.4 k/uL (3.8-10.6)
[2022-07-23 18:02] LABS: Platelet Count 79 k/uL (150-450)
--- NOTE | 2022-07-23 18:52 | P.CONS ---
History of Present Illness - Reason for Consult Consult date: 07/23/22 Malignancy Requesting physician: Mary Lagos - Chief Complaint Weakness, increased jaundice - History of Present Illness Mr. Gaytan is a pleasantly confused 72-year-old man we have been asked to see in regards to suspicious for malignancy. Patient is not able to tell me his history so, reviewed all of the documents provided by [facility]. Patient was just recently admitted to [facility] July 12 and discharged July 14. Admitted with complaints of coffee-ground emesis. He was started on Protonix and IV octreotide. CT of the liver 07/13 with and without contrast reads nodular hepatic surface contour, confluent microlobulated heterogenous parenchymal enhancement, multiple enhancing lesions all greater than 2 cm, extensive occlusive portal vein thrombosis extending from proximal portal vein to just above the portal confluence. Difficult to assess if that represents tumor or thrombus. Patient had elevated liver enzymes, total bilirubin was 5.5. CA-19-9 and CEA were checked, documented is normal. AFP was elevated at 2600. EGD on 07/13, 5 large esophageal varices with moderate portal hypertension, [address] of the chest showed no other lesions. Hepatology is documented as being confident in HCC diagnosis without the need for biopsy. Patient stabilized, no further coffee-ground emesis, was discharged on 40 mg of nadaolol, 20 mg of omeprazole and Cipro 5007 days for the varices. Plan is documented that the patient would be discussed at tumor Board this week. Pt admitted fro [facility] with concerns for progressive jaundice. Review of Systems Difficult to obtain due to mental status. Patient is alert but has difficulty answering questions. Past Medical History Past Medical History: Cancer, Diabetes Mellitus, Hypertension, Liver Disease Additional Past Medical History / Comment(s): Pt recently admitted to [facility] on 07/11/22 with multiple liver masses, hyperbilirubinemia, elevate LFTs, perihepatic ascities, splenomegaly, thrombocytopenia, GI bleed/+OB, portal vein thrombosis, hypercalcemia and was transfered to [facility] where pt states "they ran a bunch of tests" and he is waiting to hear treatment plan. Other hx: IDDM type II, neuropathy bilateral feet, 04/2022 bacteremia/sepsis/mssa and osteomylitis L foot plantar wound/completed 6 weeks IV abx, recent low back pain. History of Any Multi-Drug Resistant Organisms: None Reported Past Surgical History: Orthopedic Surgery, Tonsillectomy Additional Past Surgical History / Comment(s): L toe debridement at [facility] per pt, L ankle injury with minor surgical repair Past Anesthesia/Blood Transfusion Reactions: No Reported Reaction Past Psychological History: Unable to Obtain Smoking Status: Never smoker Past Alcohol Use History: Daily (Recently stopped about 4 months ago) Past Drug Use History: Unable to Obtain - Past Family History Mother Family Medical History: Diabetes Mellitus Father Family Medical History: No Reported History Additional Family Medical History / Comment(s): Father was healthy Medications and Allergies Home Medications Medication Instructions Recorded Confirmed Type Cholecalciferol [Vitamin D3 (25 25 mcg PO DAILY 05/04/22 07/22/22 History Mcg = 1000 Iu)] Cyanocobalamin [Vitamin B-12] 500 mcg PO DAILY 05/04/22 07/22/22 History Gabapentin 300 mg PO BID 05/04/22 07/22/22 History Glucosam/Chond/Hyalu/Cf Borate 1 tab PO DAILY 05/04/22 07/22/22 History [Move Free Joint Health Tablet] Insulin Aspart Prot/Insuln Asp 15 unit SQ AC-BRKFST 05/04/22 07/22/22 History [NovoLOG MIX 70-30 Flexpen] lisinopriL [Zestril] 10 mg PO DAILY 05/04/22 07/22/22 History Pravastatin Sodium [Pravachol] 40 mg PO HS 07/11/22 07/22/22 History Ciprofloxacin HCl 500 mg PO BID 07/22/22 07/22/22 History Lactulose [Constulose] 10 gm PO TID 07/22/22 07/22/22 History Liraglutide [Victoza 3-Chemo] 0.6 mg SQ DAILY 07/22/22 07/22/22 History Omeprazole 20 mg PO DAILY 07/22/22 07/22/22 History nadoloL [Corgard] 40 mg PO DAILY 07/22/22 07/22/22 History Allergies Allergy/AdvReac Type Severity Reaction Status Date / Time No Known Allergies Allergy Verified 07/22/22 20:35 Physical Exam Vitals: Vital Signs Temp Pulse Pulse Resp BP BP Pulse Ox 07/23/22 11:40 97.7 F 50 L 16 102/62 96 07/23/22 09:42 48 L 07/23/22 07:33 97.7 F 51 L 16 117/65 96 07/23/22 06:30 55 L 16 120/78 96 07/23/22 04:00 51 L 16 116/67 97 07/22/22 21:47 50 L 18 110/62 96 07/22/22 18:57 97.8 F 53 L 18 103/64 100 Intake and Output 07/23/22 07/23/22 07/23/22 06:59 14:59 22:59 Other: # Voids 1 # Bowel Movements 1 Weight 92.986 kg - Constitutional General appearance: average body habitus, cooperative, no acute distress - EENT Eyes: EOMI, scleral icterus ENT: hearing grossly normal, normal oropharynx - Neck Neck: no lymphadenopathy - Respiratory Respiratory: bilateral: CTA - Cardiovascular Rhythm: regular Heart sounds: normal: S1, S2 Abnormal Heart Sounds: systolic murmur, no diastolic murmur, no rub, no S3 Gallop, no S4 Gallop, no click, no other leg Peripheral Edema: bilateral: Trace - Gastrointestinal General gastrointestinal: no absent bowel sounds, no decreased bowel sounds, no distended, hepatomegaly (About 2 fingerbreadths below costal margin with inspiration), no hyperactive bowel sounds, normal bowel sounds, no organomegaly, no rigid, no scaphoid, soft, no splenomegaly, no tenderness, no umbilical hernia, no ventral hernia - Integumentary Integumentary: jaundiced - Neurologic Neurologic: CNII-XII intact (Grossly) - Musculoskeletal Musculoskeletal: generalized weakness - Psychiatric Psychiatric: A&O x's 3, appropriate affect Results CBC & Chem 7: 07/23/22 17:47 07/23/22 07:22 Labs: Abnormal Lab Results - Last 24 Hours (Table) 07/22/22 07/22/22 07/22/22 Range/Units 17:17 17:17 18:34 RBC (4.40-5.60) X 10*6/uL MCV 103.2 H (80.0-100.0) fL MCHC 29.5 L (31.0-37.0) g/dL RDW 19.6 H (11.5-15.5) % Plt Count 59 L (150-450) k/uL Plt Count Comment Lymphocytes # 0.9 L (1.0-4.8) k/uL Immature Plt Fraction (1.1-6.1) % Macrocytosis Marked A PT 13.9 H (9.0-12.0) sec INR 1.3 H (<1.2) Sodium 134 L (137-145) mmol/L Potassium 5.2 H (3.5-5.1) mmol/L Carbon Dioxide 19 L (22-30) mmol/L BUN 50 H (9-20) mg/dL Est GFR (CKD-EPI)AfAm (60.0-200.0) Est GFR (CKD-EPI)NonAf (60.0-200.0) BUN/Creatinine Ratio (12.00-20.00) Ratio Glucose 112 H (74-99) mg/dL Calcium 13.9 H* (8.4-10.2) mg/dL Total Bilirubin 11.5 H (0.2-1.3) mg/dL AST 434 H (17-59) U/L ALT 65 H (4-49) U/L Alkaline Phosphatase 377 H (38-126) U/L Ammonia (<30) umol/L Albumin (3.8-4.9) g/dL Albumin/Globulin Ratio (1.60-3.17) g/dL Urine Protein (Negative) Urine Blood (Negative) Urine Bilirubin (Negative) Ur Leukocyte Esterase (Negative) Urine WBC (0-5) /hpf Amorphous Sediment (None) /hpf Urine Bacteria (None) /hpf Hyaline Casts (0-2) /lpf Urine Mucus (None) /hpf 07/22/22 07/22/22 07/23/22 Range/Units 18:34 22:51 07:22 RBC 4.26 L (4.40-5.60) X 10*6/uL MCV (80.0-100.0) fL MCHC (31.0-37.0) g/dL RDW 22.5 H (11.5-15.5) % Plt Count 52 L (150-450) k/uL Plt Count Comment DECREASED A Lymphocytes # 0.78 L (1.0-4.8) k/uL Immature Plt Fraction 6.8 H (1.1-6.1) % Macrocytosis PT (9.0-12.0) sec INR (<1.2) Sodium (137-145) mmol/L Potassium (3.5-5.1) mmol/L Carbon Dioxide (22-30) mmol/L BUN (9-20) mg/dL Est GFR (CKD-EPI)AfAm (60.0-200.0) Est GFR (CKD-EPI)NonAf (60.0-200.0) BUN/Creatinine Ratio (12.00-20.00) Ratio Glucose (74-99) mg/dL Calcium (8.4-10.2) mg/dL Total Bilirubin (0.2-1.3) mg/dL AST (17-59) U/L ALT (4-49) U/L Alkaline Phosphatase (38-126) U/L Ammonia 74 H (<30) umol/L Albumin (3.8-4.9) g/dL Albumin/Globulin Ratio (1.60-3.17) g/dL Urine Protein 1+ H (Negative) Urine Blood Trace H (Negative) Urine Bilirubin 2+ H (Negative) Ur Leukocyte Esterase Small H (Negative) Urine WBC 36 H (0-5) /hpf Amorphous Sediment Rare H (None) /hpf Urine Bacteria Rare H (None) /hpf Hyaline Casts 90 H (0-2) /lpf Urine Mucus Rare H (None) /hpf 07/23/07/23/ Range/Units 07:22 07:22 RBC (4.40-5.60) X 10*6/uL MCV (80.0-100.0) fL MCHC (31.0-37.0) g/dL RDW (11.5-15.5) % Plt Count (150-450) k/uL Plt Count Comment Lymphocytes # (1.0-4.8) k/uL Immature Plt Fraction (1.1-6.1) % Macrocytosis PT 14.1 H (9.0-12.0) sec INR 1.30 H (<1.2) Sodium (137-145) mmol/L Potassium (3.5-5.1) mmol/L Carbon Dioxide (22-30) mmol/L BUN 52.2 H (9-20) mg/dL Est GFR (CKD-EPI)AfAm 58.2 L (60.0-200.0) Est GFR (CKD-EPI)NonAf 50.2 L (60.0-200.0) BUN/Creatinine Ratio 37.29 H (12.00-20.00) Ratio Glucose (74-99) mg/dL Calcium 14.5 H* (8.4-10.2) mg/dL Total Bilirubin 11.80 H (0.2-1.3) mg/dL AST 406 H (17-59) U/L ALT 70 H (4-49) U/L Alkaline Phosphatase 385 H (38-126) U/L Ammonia (<30) umol/L Albumin 3.7 L (3.8-4.9) g/dL Albumin/Globulin Ratio 1.37 L (1.60-3.17) g/dL Urine Protein (Negative) Urine Blood (Negative) Urine Bilirubin (Negative) Ur Leukocyte Esterase (Negative) Urine WBC (0-5) /hpf Amorphous Sediment (None) /hpf Urine Bacteria (None) /hpf Hyaline Casts (0-2) /lpf Urine Mucus (None) /hpf Microbiology - Last 24 Hours (Table) 07/22/22 22:51 Urine Culture - Preliminary Urine,Voided Comments: Reviewed reports, labs and notes from [facility] admission Assessment and Plan (1) Hypercalcemia Current Visit: Yes Status: Acute Priority: High Code(s): E83.52 - HYPERCALCEMIA SNOMED Code(s): 11131673 (2) Liver masses Current Visit: Yes Status: Acute Priority: High Code(s): R16.0 - HEPATOMEGALY, NOT ELSEWHERE CLASSIFIED SNOMED Code(s): 522420862 (3) Thrombocytopenia Current Visit: Yes Status: Acute Priority: Medium Code(s): D69.6 - THROMBOCYTOPENIA, UNSPECIFIED SNOMED Code(s): 912365902 (4) Portal vein thrombosis Current Visit: No Status: Acute Code(s): I81 - PORTAL VEIN THROMBOSIS SNOMED Code(s): 47827408 Plan: Review to [facility] notes. Below is a summary of that documentation Hepatology has given the patient a diagnosis of hepatocellular carcinoma, they're confident in the same without biopsy. His case should be being reviewed by tumor board this week. [facility] should be getting a hold of patient for further discussion. Hypercalcemia of malignancy. Corrected calcium is 14.74. Previously patient was given calcitonin and IV fluids at [facility] last week. 1 dose of pamidronate ordered. For progressive liver failure, GI is been consulted. Bili fractions have been o rdered. Liver imaging did report a possible portal vein thrombosis versus a tumor thrombosis. Patient was not discharged on any anticoagulation. Patient recently has had variceal bleeding. Do not recommend full dose anticoagulation at this time. SCDs were ordered for DVT prophylaxis. Thrombocytopenia is stable when compared to previous hospitalizations. Tumor markers not drawn as they were just done within the last week. AFP 2600, CEA and CA 19.9 were within normal limits. Patient needs to follow up with hepatology at [facility], Dr. Jaimes Time with Patient: Greater than 30
[2022-07-23] MEDS ORDERED: SODIUM CHLORIDE 0.9% 250 ML with PAMIDRONATE 60 MG IV ONE ×2 (19:00)
[2022-07-23 19:38] LABS: Glucose,Whole Blood 91 mg/dL (70-110)
[2022-07-23] MEDS: OCTREOTIDE 500 MCG in SODIUM CHLORIDE 0.9% 250 ML IV SCH (20:10)
[2022-07-23] MEDS: PANTOPRAZOLE 40 MG/10 ML VIAL IV SCH (20:26)
--- NOTE | 2022-07-24 01:05 | HP ---
HISTORY AND PHYSICAL CHIEF COMPLAINT: Weakness and dehydration. HISTORY OF PRESENT ILLNESS: This 72-year-old gentleman with a past medical history of cirrhosis of liver, being followed by [facility], was recently diagnosed to have possible malignancy. The ultimate diagnosis and treatment plan are still underway at [facility]. Meanwhile, the patient became progressively lethargic and diminished p.o. intake and had severe dehydration. The patient was taken to [facility] and was admitted for evaluation and treatment. The patient had a calcium elevated to 14.5 and ammonia was elevated to 74. Also, there is no history of any fever, rigors, or chills. The patient is unable to give a coherent history. Most of the history is taken by discussion with the family at the bedside and review of the chart. PAST MEDICAL HISTORY: He was recently diagnosed to have possible hepatic cancer, diabetes mellitus, hypertension, chronic liver disease. MEDICATIONS: Home medications are reviewed and include Corgard. Dose and rest of the medication noted. ALLERGIES: None. FAMILY HISTORY: Could not be taken. SOCIAL HISTORY: Could not be taken. REVIEW OF SYSTEMS: Could not be taken. PHYSICAL EXAMINATION: VITAL SIGNS: Pulse is 50, blood pressure 102/62, respirations 16. HEENT: Conjunctivae icteric. Oral mucosa dry. NECK: No JVD. CARDIOVASCULAR: S1, S2 muffled. RESPIRATION: Breath sounds diminished at the bases. A few scattered rhonchi. ABDOMEN: Soft. Mild diffuse distention. LEGS: No edema. No swelling. NERVOUS SYSTEM: Diffusely weak. SKIN: No ulcer, rash, or bleeding. JOINTS: No active deforming arthropathy. LABORATORY DATA: Reviewed, include INR 1.3. The rest of the labs are noted. ASSESSMENT: 1. Severe dehydration with hypercalcemia, possibly secondary to malignancy. 2. Possible hepatic malignancy. 3. Cirrhosis of liver. 4. Hyperbilirubinemia. 5. Liver failure. 6. Multiple medical issues. 7. Acute urinary tract infection, present on admission. RECOMMENDATION AND DISCUSSION: This 72-year-old gentleman presented with multiple complex medical issues. We will monitor the patient closely. Continue the current medications and symptomatic treatment. Initiate broad-spectrum IV antibiotics, lactulose. We will obtain Gastroenterology as well as Hematology/Oncology evaluation. Guarded prognosis. Further recommendations to follow. MMODL / IJN: [id number] /
[2022-07-24] MEDS: SODIUM CHLORIDE 0.9% 1,000 ML IV SCH ×3 (05:51→15:48)
[2022-07-24] MEDS: OCTREOTIDE 500 MCG in SODIUM CHLORIDE 0.9% 250 ML IV SCH ×2 (06:22→15:48)
[2022-07-24 07:37] LABS: Albumin 3.7 g/dL (3.5-5.0); Potassium 5.1 mmol/L (3.5-5.1); Total Bilirubin 14.9 mg/dL (0.2-1.3); Total Protein 7.2 g/dL (6.3-8.2)
[2022-07-24 07:41] LABS: Anisocytosis Moderate; Basophils % (A) 1 %; Eosinophils # (A) 0.1 k/uL (0-0.7); Eosinophils % (A) 1 %; HCT 44.3 % (39.0-53.0); HGB 13.1 gm/dL (13.0-17.5); Hypochromasia Marked; Lymphocytes # (A) 0.7 k/uL (1.0-4.8); Lymphocytes % (A) 15 %; MCH 31.2 pg (25.0-35.0); MCHC 29.5 g/dL (31.0-37.0); MCV 105.9 fL (80.0-100.0); Macrocytosis Marked; Mean Platelet Volume 10.2; Monocytes # (A) 0.3 k/uL (0-1.0); Monocytes % (A) 7 %; Neutrophils # (A) 3.6 k/uL (1.3-7.7); Neutrophils % (A) 73 %; Poikilocytosis Slight; RBC 4.18 m/uL (4.30-5.90); RDW 20.2 % (11.5-15.5)
[2022-07-24 07:45] LABS: Platelet Count 50 k/uL (150-450)
[2022-07-24 07:48] LABS: Calcium 13.5 mg/dL (8.4-10.2)
[2022-07-24] MEDS: PANTOPRAZOLE 40 MG/10 ML VIAL IV SCH ×2 (08:53→20:39)
[2022-07-24] MEDS: LACTULOSE 20 GM/30 ML CUP PO SCH ×3 (09:47→20:39)
[2022-07-24] MEDS ORDERED: CALCITONIN INJ 200 UNIT/ML (MDV) VIAL SQ ONE ×2 (10:00→18:10)
--- NOTE | 2022-07-24 10:43 | P.CNPUL ---
History of Present Illness Consult date: 07/24/22 Requesting physician: Mary Lagos Reason for consult: other (Critical care management) Chief complaint: Jaundice, weakness History of present illness: This is a 72-year-old male patient with a history of diabetes mellitus, neuropathy, osteomyelitis of the left foot with 6 weeks of IV antibiotics, hypertension, daily alcohol use, suspected liver cancer with ascites who was recently at [facility] for coffee-ground emesis treated with Protonix and IV octreotide and he had undergone biopsies discharged 07/14/2022 and was waiting for results when he was seen by his PCP on 07/22/2022 who felt the patient was more jaundice and sent him back here to the emergency room. He was having issues with ongoing weakness and poor appetite and he is found to have thrombocytopenia, hypercalcemia, hyperammonia anemia and liver failure was admitted to the regular medical floor for the same. Last evening he had developed hematemesis and was transferred to the intensive care unit. He is seen today in consultation in the ICU. He is arousable but drifts off easily. He is maintaining O2 saturations in the 90s on room air. White count 5.0. Hemoglobin 13.1. Platelet count 50,000. Sodium 139. Potassium 5.1. Chloride 107. Bicarb 17. BUN 58. Creatinine 1.56. Calcium 13.5. Total bilirubin 14.9. AST 394. ALT 71. Alk phos 410. He remains on ceftriaxone. He has normal saline running at 125 ML's per hour. He is on octreotide at 50 g per hour. Protonix 40 mg IV twice a day. No further hematemesis this morning thus far. Review of Systems ROS unobtainable: due to mental status Past Medical History Past Medical History: Cancer, Diabetes Mellitus, Hypertension, Liver Disease Additional Past Medical History / Comment(s): Pt recently admitted to [facility] on 07/11/22 with multiple liver masses, hyperbilirubinemia, elevate LFTs, perihepatic ascities, splenomegaly, thrombocytopenia, GI bleed/+OB, portal vein thrombosis, hypercalcemia and was transfered to [facility] where pt states "they ran a bunch of tests" and he is waiting to hear treatment plan. Other hx: IDDM type II, neuropathy bilateral feet, 04/2022 bacteremia/sepsis/mssa and osteomylitis L foot plantar wound/completed 6 weeks IV abx, recent low back pain. History of Any Multi-Drug Resistant Organisms: None Reported Past Surgical History: Orthopedic Surgery, Tonsillectomy Additional Past Surgical History / Comment(s): L toe debridement at [facility] per pt, L ankle injury with minor surgical repair Past Anesthesia/Blood Transfusion Reactions: No Reported Reaction Past Psychological History: Unable to Obtain Smoking Status: Never smoker Past Alcohol Use History: Daily (Recently stopped about 4 months ago) Past Drug Use History: Unable to Obtain - Past Family History Mother Family Medical History: Diabetes Mellitus Father Family Medical History: No Reported History Additional Family Medical History / Comment(s): Father was healthy Medications and Allergies Home Medications Medication Instructions Recorded Confirmed Type Cholecalciferol [Vitamin D3 (25 25 mcg PO DAILY 05/04/22 07/22/22 History Mcg = 1000 Iu)] Cyanocobalamin [Vitamin B-12] 500 mcg PO DAILY 05/04/22 07/22/22 History Gabapentin 300 mg PO BID 05/04/22 07/22/22 History Glucosam/Chond/Hyalu/Cf Borate 1 tab PO DAILY 05/04/22 07/22/22 History [Move Free Joint Health Tablet] Insulin Aspart Prot/Insuln Asp 15 unit SQ AC-[id number] 05/04/22 07/22/22 History [NovoLOG MIX 70-30 Flexpen] lisinopriL [Zestril] 10 mg PO DAILY 05/04/22 07/22/22 History Pravastatin Sodium [Pravachol] 40 mg PO HS 07/11/22 07/22/22 History Ciprofloxacin HCl 500 mg PO BID 07/22/22 07/22/22 History Lactulose [Constulose] 10 gm PO TID 07/22/22 07/22/22 History Liraglutide [Victoza 3-Chemo] 0.6 mg SQ DAILY 07/22/22 07/22/22 History Omeprazole 20 mg PO DAILY 07/22/22 07/22/22 History nadoloL [Corgard] 40 mg PO DAILY 07/22/22 07/22/22 History Allergies Allergy/AdvReac Type Severity Reaction Status Date / Time No Known Allergies Allergy Verified 07/22/22 20:35 Physical Exam Vitals: Vital Signs Temp Pulse Pulse Pulse Resp BP BP 07/24/22 09:00 52 L 17 117/61 07/24/22 08:00 97.7 F 49 L 14 107/61 07/24/22 07:00 48 L 49 L 14 102/57 107/61 07/24/22 06:00 50 L 17 113/62 07/24/22 05:00 51 L 14 104/64 07/24/22 04:00 97.8 F 50 L 16 112/62 07/24/22 03:16 50 L 07/24/22 03:00 51 L 13 115/64 07/24/22 02:00 52 L 14 103/59 07/24/22 01:00 49 L 14 106/66 07/24/22 00:08 49 L 15 07/24/22 00:00 98.0 F 49 L 17 108/55 07/23/22 23:00 52 L 15 106/59 07/23/22 22:00 49 L 16 111/58 07/23/22 21:30 52 L 14 111/58 07/23/22 21:15 51 L 15 111/58 07/23/22 20:40 19 07/23/22 20:00 98.1 F 53 L 52 L 18 112/62 119/62 07/23/22 18:15 54 L 102/56 07/23/22 17:49 49 L 95/57 07/23/22 17:44 47 L 91/51 07/23/22 17:40 98.2 F 48 L 15 95/60 07/23/22 11:40 97.7 F 50 L 16 102/62 Pulse Ox 07/24/22 09:00 94 L 07/24/22 08:00 93 L 07/24/22 07:00 93 L 07/24/22 06:00 94 L 07/24/22 05:00 91 L 07/24/22 04:00 93 L 07/24/22 03:16 07/24/22 03:00 93 L 07/24/22 02:00 93 L 07/24/22 01:00 94 L 07/24/22 00:08 96 07/24/22 00:00 96 07/23/22 23:00 97 07/23/22 22:00 97 07/23/22 21:30 95 07/23/22 21:15 96 07/23/22 20:40 07/23/22 20:00 85 L 07/23/22 18:15 07/23/22 17:49 07/23/22 17:44 07/23/22 17:40 95 07/23/22 11:40 96 Intake and Output 07/23/22 07/24/22 07/24/22 22:59 06:59 14:59 Intake Total 2946 1766 375 Output Total 350 820 150 Balance 2596 946 225 Intake: IV 25 Octreotide 500 mcg In 25 Sodium Chloride 0.9% 250 ml @ 50 MCG/HR 25 mls/hr IV .Q10H JOSE MARTIN Rx#: [id number] Intake, IV Titration 2366 1741 375 Amount Octreotide 500 mcg In 50 450 Sodium Chloride 0.9% 250 ml @ 50 MCG/HR 25 mls/hr IV .Q10H JOSE MARTIN Rx#: [id number] Sodium Chloride 0.9% 1, 2100 1125 375 000 ml @ 125 mls/hr IV . Q8H JOSE MARTIN Rx#:[id number] Sodium Chloride 0.9% 250 166 166 ml @ 83 mls/hr IV .Q3H1M ONE with Pamidronate 60 mg Rx#:[id number] cefTRIAXone 1 gm In 50 Sodium Chloride 0.9% 50 ml @ 100 mls/hr IVPB Q24HR JOSE MARTIN Rx#:[id number] Oral 580 Output: Urine 100 400 150 Stool 250 200 Urine/Stool Mix 220 Other: Voiding Method Urinal Urinal # Voids 3 1 # Bowel Movements 1 1 1 Weight 92.6 kg GENERAL EXAM: Arousable, drifts off easily, jaundice 72-year-old male patient, on room air, comfortable in no apparent distress. HEAD: Normocephalic. EYES: Normal reaction of pupils, equal size. Icteric. NOSE: Clear with pink turbinates. THROAT: No erythema or exudates. NECK: No masses, no JVD. CHEST: No chest wall deformity. LUNGS: Equal air entry with no crackles, wheeze, rhonchi or dullness. CVS: S1 and S2 normal with no audible murmur, regular rhythm. ABDOMEN: Distended. Normal bowel sounds, no guarding or rigidity. SPINE: No scoliosis or deformity SKIN: No rashes CENTRAL NERVOUS SYSTEM: No focal deficits, tone is normal in all 4 extremities. EXTREMITIES: There is no peripheral edema. No clubbing, no cyanosis. Peripheral pulses are intact. Results - Laboratory Findings CBC and BMP: 08/26/22 06:51 07/24/22 06:51 PT/INR, D-dimer PT 14.1 sec (9.9-11.9) H 07/23/22 07:22 INR 1.30 (0.90-1.11) H 07/23/22 07:22 Abnormal lab findings: Abnormal Labs 07/22/22 07/22/22 07/22/22 17:17 17:17 18:34 RBC MCV 103.2 H MCHC 29.5 L RDW 19.6 H Plt Count 59 L Plt Count Comment Lymphocytes # 0.9 L Immature Plt Fraction Macrocytosis Marked A PT 13.9 H INR 1.3 H Sodium 134 L Potassium 5.2 H Carbon Dioxide 19 L BUN 50 H Creatinine Est GFR (CKD-EPI)AfAm Est GFR (CKD-EPI)NonAf BUN/Creatinine Ratio Glucose 112 H Calcium 13.9 H* Total Bilirubin 11.5 H AST 434 H ALT 65 H Alkaline Phosphatase 377 H Ammonia Albumin Albumin/Globulin Ratio Urine Protein Urine Blood Urine Bilirubin Ur Leukocyte Esterase Urine WBC Amorphous Sediment Urine Bacteria Hyaline Casts Urine Mucus Crossmatch 07/22/22 07/22/22 07/23/22 18:34 22:51 07:22 RBC 4.26 L MCV MCHC RDW 22.5 H Plt Count 52 L Plt Count Comment DECREASED A Lymphocytes # 0.78 L Immature Plt Fraction 6.8 H Macrocytosis PT INR Sodium Potassium Carbon Dioxide BUN Creatinine Est GFR (CKD-EPI)AfAm Est GFR (CKD-EPI)NonAf BUN/Creatinine Ratio Glucose Calcium Total Bilirubin AST ALT Alkaline Phosphatase Ammonia 74 H Albumin Albumin/Globulin Ratio Urine Protein 1+ H Urine Blood Trace H Urine Bilirubin 2+ H Ur Leukocyte Esterase Small H Urine WBC 36 H Amorphous Sediment Rare H Urine Bacteria Rare H Hyaline Casts 90 H Urine Mucus Rare H Crossmatch 07/23/22 07/23/22 07/23/22 07:22 07:22 17:43 RBC MCV MCHC RDW Plt Count Plt Count Comment Lymphocytes # Immature Plt Fraction Macrocytosis PT 14.1 H INR 1.30 H Sodium Potassium Carbon Dioxide BUN 52.2 H Creatinine Est GFR (CKD-EPI)AfAm 58.2 L Est GFR (CKD-EPI)NonAf 50.2 L BUN/Creatinine Ratio 37.29 H Glucose Calcium 14.5 H* Total Bilirubin 11.80 H AST 406 H ALT 70 H Alkaline Phosphatase 385 H Ammonia Albumin 3.7 L Albumin/Globulin Ratio 1.37 L Urine Protein Urine Blood Urine Bilirubin Ur Leukocyte Esterase Urine WBC Amorphous Sediment Urine Bacteria Hyaline Casts Urine Mucus Crossmatch See Detail 07/23/22 07/24/22 07/24/22 17:47 06:51 06:51 RBC 4.18 L MCV 104.0 H 105.9 H MCHC 30.1 L 29.5 L RDW 20.0 H 20.2 H Plt Count 79 L 50 L Plt Count Comment Lymphocytes # Immature Plt Fraction Macrocytosis Marked A Marked A PT INR Sodium Potassium Carbon Dioxide 17 L BUN 58 H Creatinine 1.56 H Est GFR (CKD-EPI)AfAm Est GFR (CKD-EPI)NonAf BUN/Creatinine Ratio Glucose Calcium 13.5 H* Total Bilirubin 14.9 H AST 394 H ALT 71 H Alkaline Phosphatase 410 H Ammonia Albumin Albumin/Globulin Ratio Urine Protein Urine Blood Urine Bilirubin Ur Leukocyte Esterase Urine WBC Amorphous Sediment Urine Bacteria Hyaline Casts Urine Mucus Crossmatch Assessment and Plan Assessment: Hematemesis requiring transfer to the intensive care unit Thrombocytopenia History of liver masses status post biopsy at [facility], pathology pending, suspect hepatocellular carcinoma Hypercalcemia secondary to above History of daily alcohol use, none in the past 4 months Hyperlipidemia Diabetes mellitus Chest esophageal reflux disease Hypertension Diabetic neuropathy History of osteomyelitis of the left foot requiring 6 weeks of IV antibiotics Plan: The patient was seen and evaluated Medications and labs reviewed Currently on octreotide We'll continue to monitor closely here in the ICU Plan is for transfer back to [facility] In the interim, we'll continue to follow and make further recommendations based on his clinical status I have personally seen and examined the patient, performed the documentation and the assessment and plan as written. Number of minutes spent on the visit: 20.
[2022-07-24 10:50] LABS: Polychromasia Present
[2022-07-24 11:38] LABS: Hepatitis A Antibody IgM Nonreactive (Nonreactive); Hepatitis B Core IgM Nonreactive (Nonreactive); Hepatitis B Surface Antigen Nonreactive (Nonreactive); Hepatitis C IgG Antibody Nonreactive (Nonreactive)
--- NOTE | 2022-07-24 11:55 | P.CONS ---
History of Present Illness - Reason for Consult Consult date: 07/24/22 Cirrhosis of liver Requesting physician: Nika Herrera - Chief Complaint Jaundice - History of Present Illness A pleasant 72-year-old male who was sent in by his PCP Dr. Mcdermott for concerns of jaundice. Patient was just recently admitted to [facility] June 29 and discharged July 14. Admitted with complaints of coffee-ground emesis. He was started on Protonix and IV octreotide. CT of the liver 07/11/22 with contrast done here concerning for severe heterogeneity of the liver parenchyma appearance of multiple masses replacing most of the liver, largest confluent area measuring up to 15.0 cm primary or secondary malignancy are considerations. At that time there is no gastroenterology services available in the hospital and patient was transferred to [facility]. CA-19-9 and CEA were checked, documented is normal. AFP was elevated at 2600. Patient had and EGD on 07/13/22 with findings of 5 large esophageal varices with moderate portal hypertension, [address] of the chest showed no other lesions. Hepatology is documented as being confident in HCC diagnosis without the need for biopsy. Patient stabilized, no further coffee-ground emesis, was discharged on 40 mg of nadaolol, 20 mg of omeprazole and Cipro 5007 days for the varices. Plan was documented that the patient would be discussed at tumor Board this week. Speaking with patient today he states that he was told he had cirrhosis of the liver in April. He was not following with any liver specialist locally. He does have a significant history of alcohol abuse for many years. During his visit on 07/11/2022 his total bilirubin was 5.5 AST 325 ALT 45 alkaline phosphatase 314. He was noted to have significant elevation up to 14.9 total bilirubin this admission. He also was noted to be confused and had pneumonia level is 74. He was started on lactulose and his repeat ammonia is 24. During the evening patient had couple episodes of hematemesis and was transferred to the ICU from the medical unit. He was started on octreotide. No further bleeding noted tod ay. Hemoglobin stable Labs: WBC 5.0 hemoglobin 13.1 hematocrit 44 MCV 105 MCH 31 platelet count 50,000, INR 1.3 sodium 139 potassium 5.1 BUN 58 creatinine 1.56 calcium 13.5 total bilirubin 14.9 AST 394 ALT 71 alkaline phosphatase 410 ammonia 24 Review of Systems REVIEW OF SYSTEMS: CARDIOPULMONARY: No chest pain or shortness of breath. Gastrointestinal: Denies abdominal pain. Patient denies any blood in his stool. He did have hematemesis last night. GENITOURINARY: No dysuria or hematuria. MUSCULOSKELETAL: Reports normal range of motion. SKIN: No rashes. No jaundice. ENDOCRINE: No chills, fevers. No excessive weight gain or loss. No polydipsia or polyuria. PSYCHIATRIC: Unremarkable. NEUROLOGY: Confusion, improved. Denies dizziness, headache. ENT: Vision unremarkable. CONSTITUTIONAL: No recent weight loss. No fever, chills, night sweats. Past Medical History Past Medical History: Cancer, Diabetes Mellitus, Hypertension, Liver Disease Additional Past Medical History / Comment(s): Pt recently admitted to [facility] on 07/11/22 with multiple liver masses, hyperbilirubinemia, elevate LFTs, perihepatic ascities, splenomegaly, thrombocytopenia, GI bleed/+OB, portal vein thrombosis, hypercalcemia and was transfered to [facility] where pt states "they ran a bunch of tests" and he is waiting to hear treatment plan. Other hx: IDDM type II, neuropathy bilateral feet, 04/2022 bacteremia/sepsis/mssa and osteomylitis L foot plantar wound/completed 6 weeks IV abx, recent low back pain. History of Any Multi-Drug Resistant Organisms: None Reported Past Surgical History: Orthopedic Surgery, Tonsillectomy Additional Past Surgical History / Comment(s): L toe debridement at [facility] per pt, L ankle injury with minor surgical repair Past Anesthesia/Blood Transfusion Reactions: No Reported Reaction Past Psychological History: Unable to Obtain Smoking Status: Never smoker Past Alcohol Use History: Daily (Recently stopped about 4 months ago) Past Drug Use History: Unable to Obtain - Past Family History Mother Family Medical History: Diabetes Mellitus Father Family Medical History: No Reported History Additional Family Medical History / Comment(s): Father was healthy Medications and Allergies Home Medications Medication Instructions Recorded Confirmed Type Cholecalciferol [Vitamin D3 (25 25 mcg PO DAILY 05/04/22 07/22/22 History Mcg = 1000 Iu)] Cyanocobalamin [Vitamin B-12] 500 mcg PO DAILY 05/04/22 07/22/22 History Gabapentin 300 mg PO BID 05/04/22 07/22/22 History Glucosam/Chond/Hyalu/Cf Borate 1 tab PO DAILY 05/04/22 07/22/22 History [Move Free Joint Health Tablet] Insulin Aspart Prot/Insuln Asp 15 unit SQ AC-BRKFST 05/04/22 07/22/22 History [NovoLOG MIX 70-30 Flexpen] lisinopriL [Zestril] 10 mg PO DAILY 05/04/22 07/22/22 History Pravastatin Sodium [Pravachol] 40 mg PO HS 07/11/22 07/22/22 History Ciprofloxacin HCl 500 mg PO BID 07/22/22 07/22/22 History Lactulose [Constulose] 10 gm PO TID 07/22/22 07/22/22 History Liraglutide [Victoza 3-Chemo] 0.6 mg SQ DAILY 07/22/22 07/22/22 History Omeprazole 20 mg PO DAILY 07/22/22 07/22/22 History nadoloL [Corgard] 40 mg PO DAILY 07/22/22 07/22/22 History Allergies Allergy/AdvReac Type Severity Reaction Status Date / Time No Known Allergies Allergy Verified 07/22/22 20:35 Physical Exam Vitals: Vital Signs Temp Pulse Pulse Pulse Resp BP BP 07/24/22 07:00 48 L 49 L 14 102/57 107/61 07/24/22 06:00 50 L 17 113/62 07/24/22 05:00 51 L 14 104/64 07/24/22 04:00 97.8 F 50 L 16 112/62 07/24/22 03:16 50 L 07/24/22 03:00 51 L 13 115/64 07/24/22 02:00 52 L 14 103/59 07/24/22 01:00 49 L 14 106/66 07/24/22 00:08 49 L 15 07/24/22 00:00 98.0 F 49 L 17 108/55 07/23/22 23:00 52 L 15 106/59 07/23/22 22:00 49 L 16 111/58 07/23/22 21:30 52 L 14 111/58 07/23/22 21:15 51 L 15 111/58 07/23/22 20:40 19 07/23/22 20:00 98.1 F 53 L 52 L 18 112/62 119/62 07/23/22 18:15 54 L 102/56 07/23/22 17:49 49 L 95/57 07/23/22 17:44 47 L 91/51 07/23/22 17:40 98.2 F 48 L 15 95/60 07/23/22 11:40 97.7 F 50 L 16 102/62 07/23/22 09:42 48 L Pulse Ox 07/24/22 07:00 93 L 07/24/22 06:00 94 L 07/24/22 05:00 91 L 07/24/22 04:00 93 L 07/24/22 03:16 07/24/22 03:00 93 L 07/24/22 02:00 93 L 07/24/22 01:00 94 L 07/24/22 00:08 96 07/24/22 00:00 96 07/23/22 23:00 97 07/23/22 22:00 97 07/23/22 21:30 95 07/23/22 21:15 96 07/23/22 20:40 07/23/22 20:00 85 L 07/23/22 18:15 07/23/22 17:49 07/23/22 17:44 07/23/22 17:40 95 07/23/22 11:40 96 07/23/22 09:42 Intake and Output 07/23/22 07/24/22 07/24/22 22:59 06:59 14:59 Intake Total 2946 1766 Output Total 350 820 Balance 2596 946 Intake: IV 25 Octreotide 500 mcg In 25 Sodium Chloride 0.9% 250 ml @ 50 MCG/HR 25 mls/hr IV .Q10H JOSE MARTIN Rx#: [id number] Intake, IV Titration 2366 1741 Amount Octreotide 500 mcg In 50 450 Sodium Chloride 0.9% 250 ml @ 50 MCG/HR 25 mls/hr IV .Q10H JOSE MARTIN Rx#: [id number] Sodium Chloride 0.9% 1, 2100 1125 000 ml @ 125 mls/hr IV . Q8H JOSE MARTIN Rx#:[id number] Sodium Chloride 0.9% 250 166 166 ml @ 83 mls/hr IV .Q3H1M ONE with Pamidronate 60 mg Rx#:[id number] cefTRIAXone 1 gm In 50 Sodium Chloride 0.9% 50 ml @ 100 mls/hr IVPB Q24HR JOSE MARTIN Rx#:[id number] Oral 580 Output: Urine 100 400 Stool 250 200 Urine/Stool Mix 220 Other: Voiding Method Urinal Urinal # Voids 3 1 # Bowel Movements 1 1 Weight 92.6 kg General appearance: The patient is alert, oriented, appears in no acute distress. HET: Head is normocephalic and atraumatic. Conjunctiva pink. Sclera icteric. Neck: Supple without lymphadenopathy. Trachea midline. Heart: S1 S2. Regular rate and rhythm. Lungs: Clear to auscultation. Abdomen: Soft, obese, nontender, nondistended with bowel sounds. No guarding or rigidity. Skin: No rashes. Jaundice. Extremities: Normal skin color and turgor. Lower extremity edema. Neurological: No focal deficits. Alert and oriented x2. Results CBC & Chem 7: 07/24/22 06:51 07/24/22 06:51 Labs: Abnormal Lab Results - Last 24 Hours (Table) 07/23/22 07/23/22 07/23/22 Range/Units 07:22 07:22 07:22 RBC 4.26 L (4.40-5.60) X 10*6/uL MCV (80.0-100.0) fL MCHC (31.0-37.0) g/dL RDW 22.5 H (11.5-14.5) % Plt Count 52 L (140-440) X 10*3/uL Plt Count Comment DECREASED A Lymphocytes # 0.78 L (0.90-5.00) X 10*3/uL Immature Plt Fraction 6.8 H (1.1-6.1) % Macrocytosis PT 14.1 H (9.9-11.9) sec INR 1.30 H (0.90-1.11) Carbon Dioxide (22-30) mmol/L BUN 52.2 H (9.0-27.0) mg/dL Creatinine (0.66-1.25) mg/dL Est GFR (CKD-EPI)AfAm 58.2 L (60.0-200.0) Est GFR (CKD-EPI)NonAf 50.2 L (60.0-200.0) BUN/Creatinine Ratio 37.29 H (12.00-20.00) Ratio Calcium 14.5 H* (8.7-10.3) mg/dL Total Bilirubin 11.80 H (0.30-1.20) mg/dL AST 406 H (14-35) U/L ALT 70 H (10-49) U/L Alkaline Phosphatase 385 H (41-126) U/L Albumin 3.7 L (3.8-4.9) g/dL Albumin/Globulin Ratio 1.37 L (1.60-3.17) g/dL Crossmatch 07/23/22 07/23/22 07/24/22 Range/Units 17:43 17:47 06:51 RBC 4.18 L (4.40-5.60) X 10*6/uL MCV 104.0 H 105.9 H (80.0-100.0) fL MCHC 30.1 L 29.5 L (31.0-37.0) g/dL RDW 20.0 H 20.2 H (11.5-14.5) % Plt Count 79 L 50 L (140-440) X 10*3/uL Plt Count Comment Lymphocytes # (0.90-5.00) X 10*3/uL Immature Plt Fraction (1.1-6.1) % Macrocytosis Marked A Marked A PT (9.9-11.9) sec INR (0.90-1.11) Carbon Dioxide (22-30) mmol/L BUN (9.0-27.0) mg/dL Creatinine (0.66-1.25) mg/dL Est GFR (CKD-EPI)AfAm (60.0-200.0) Est GFR (CKD-EPI)NonAf (60.0-200.0) BUN/Creatinine Ratio (12.00-20.00) Ratio Calcium (8.7-10.3) mg/dL Total Bilirubin (0.30-1.20) mg/dL AST (14-35) U/L ALT (10-49) U/L Alkaline Phosphatase (41-126) U/L Albumin (3.8-4.9) g/dL Albumin/Globulin Ratio (1.60-3.17) g/dL Crossmatch See Detail 07/24/22 Range/Units 06:51 RBC (4.40-5.60) X 10*6/uL MCV (80.0-100.0) fL MCHC (31.0-37.0) g/dL RDW (11.5-14.5) % Plt Count (140-440) X 10*3/uL Plt Count Comment Lymphocytes # (0.90-5.00) X 10*3/uL Immature Plt Fraction (1.1-6.1) % Macrocytosis PT (9.9-11.9) sec INR (0.90-1.11) Carbon Dioxide 17 L (22-30) mmol/L BUN 58 H (9.0-27.0) mg/dL Creatinine 1.56 H (0.66-1.25) mg/dL Est GFR (CKD-EPI)AfAm (60.0-200.0) Est GFR (CKD-EPI)NonAf (60.0-200.0) BUN/Creatinine Ratio (12.00-20.00) Ratio Calcium 13.5 H* (8.7-10.3) mg/dL Total Bilirubin 14.9 H (0.30-1.20) mg/dL AST 394 H (14-35) U/L ALT 71 H (10-49) U/L Alkaline Phosphatase 410 H (41-126) U/L Albumin (3.8-4.9) g/dL Albumin/Globulin Ratio (1.60-3.17) g/dL Crossmatch Comments: 07/11/2022: CT abdomen and pelvis with contrast impression states severe heterogeneity of the liver parenchyma with the appearance of multiple masses replacing most of the liver, largest confluent area measuring up to 15.0 cm primary or secondary malignancy are considerations. Large clot involving the main portal vein spanning at least 6 and half centimeters, likely tumor thrombus. Splenomegaly at 16.8 cm. Trace perihepatic ascites. Gallbladder wall thickening nonspecific could be secondary to underlying liver disease no nadir hydropic change which is generally seen in acute cholecystitis. If there is concern for early acute cholecystitis HIDA scan can be considered. Moderate circumferential bladder wall thickening could reflect chronic latter hypertrophy or cystitis. There is prostatomegaly and 6. centimeter wide with heterogeneous enhancement. Probably BPH. Correlate with PSA values to exclude underlying prostate cancer. Left-sided colonic diverticulosis. No evidence for acute diverticulitis. CT scan - abdomen: report reviewed Assessment and Plan (1) Liver failure Narrative/Plan: 72-year-old male who was recently seen at this hospital on 07/11/2022 and transferred to [facility] concerns of cirrhosis of the liver, and possible hepatocellular carcinoma. Patient was admitted to [facility] for 2-3 days with workup that was concerning for hepatocellular carcinoma as well. Patient also underwent EGD on 07/13/2022 with findings of large varices and esophageal banding. Patient was readmitted for jaundice. He has a history of alcohol abuse. States he was told in April of this year that he had underlying cirrhosis of the liver related to alcohol abuse. On admission he was noted to have a total bilirubin of 14.9. Labs were consistent with alcoholic liver disease. Apparently according to notes from [facility] patient is on the tumor review board. Throughout the night he had a couple episodes of hematemesis. Hemoglobin is now stable, could be related to esophageal varices. He was started on octreotide. Patient currently hemodynamically stable and recommendation is for transfer to tertiary center as there is no GI available after today. Current Visit: Yes Status: Acute Code(s): K72.90 - HEPATIC FAILURE, UNSPECIFIED WITHOUT COMA SNOMED Code(s): 28838666 (2) Hyperammonemia Narrative/Plan: Patient was started on lactulose 30 g 3 times a day, improvement in ammonia level as well as her confusion. Current Visit: Yes Status: Acute Code(s): E72.20 - DISORDER OF UREA CYCLE METABOLISM, UNSPECIFIED SNOMED Code(s): 2026278 (3) Liver masses Narrative/Plan: As seen on prior CT dated 07/11/2022 as well as reports from [facility]. I suspicion of hepatocellular carcinoma. Current Visit: Yes Status: Acute Priority: High Code(s): R16.0 - HEPATOMEGALY, NOT ELSEWHERE CLASSIFIED SNOMED Code(s): 509724257 (4) Thrombocytopenia Narrative/Plan: Related to underlying alcoholic cirrhosis of liver Current Visit: Yes Status: Acute Priority: Medium Code(s): D69.6 - THROMBOCYTOPENIA, UNSPECIFIED SNOMED Code(s): 668983667 (5) Hematemesis Narrative/Plan: Likely related to underlying esophageal varices. Patient was started on octreotide and patient has not had any further hematemesis. Hemoglobin stable at 13.1. Patient underwent recent EGD on 07/13/2022 at [facility] with findings of large esophageal varices with banding, with moderate portal hypertensive gastropathy. Current Visit: Yes Status: Acute Code(s): K92.0 - HEMATEMESIS SNOMED Code(s): 8112190 Plan: 1. Continue symptomatic and supportive care 2. Continue octreotide 3. Continue lactulose 30 g 3 times a day, titrate to have 3-4 bowel movements daily. Please give at least 1 dose daily. 4. Daily CBC, transfuse for hemoglobin less than 7 5. Daily CMP 6. Recommend transfer to [facility] where patient recently was admitted and [facility] after today. 7. Primary medicine for further medical management Thank you for allowing us to participate in the care of the patient, the GI service will sign off, gastroenterology will not be available at the hospital this weekend and through next week. If further evaluation by gastroenterology is required the patient will need transfer as per the primary team's discretion. Dr. Kristy Omalley I agree with the dictator's note, documented as a scribe by Radha Crespo.
--- NOTE | 2022-07-24 12:35 | P.DS ---
Providers Date of admission: 07/22/22 19:37 Expected date of discharge: 07/24/22 Attending physician: Mary Lagos Consults: 07/23/22 13:24 Consult Physician Routine Consulting Provider: Bang Moise Consult Reason/Comments: malignancy Do you want consulting provider notified?: Yes 07/23/22 13:32 Consult Physician Urgent Consulting Provider: Lesly Omalley Consult Reason/Comments: cirrhosis Do you want consulting provider notified?: Yes 07/23/22 19:40 Consult Physician Routine Consulting Provider: Blaine Hebert Consult Reason/Comments: GI Bleed Do you want consulting provider notified?: Already Contacted Primary care physician: [facility] Course: Final diagnosis Severe dehydration with hypercalcemia, possibly secondary to malignancy Possible hepatic malignancy, awaiting final pathology room [facility] Cirrhosis of the liver Hyperbilirubinemia Hyperammonemia Thrombocytopenia Hematemesis possibly secondary to underlying esophageal varices Liver failure Acute urinary tract infection, present on admission Full code Discharge disposition Patient is being transferred in a stable condition with guarded prognosis to [facility] tertiary treatment mission . Total time taken is greater than 35 minutes. Hospital course This is a 72-year-old male who was recently admitted with dehydration, increased weakness with some altered mental status and was being closely monitored. Patient was recently at [facility] for cirrhosis of the liver and was recently diagnosed with possible hepatocellular carcinoma and awaiting final pathology. Patient presented here and was found to have a critical calcium level and has been receiving calcitonin. Patient had a large bloody bowel movement followed by further episodes of hematemesis and was transferred to the ICU with GI consult placed. GI evaluated the patient recommending tertiary treatment center for continued GI bleed. Hemoglobin is currently stable at 13.1 and no further bowel movements of blood or vomiting noted. Patient is maintained on octreotide and is receiving subcutaneous calcitonin for the elevated calcium. Patient does have decreased platelets of 50. Color testing was negative and patient was accepted by Dr. Antony at [facility] and awaiting a bed at this time. Case management has initiated the transfer process and [facility] will call the ICU once a bed is available. Currently no reports of chest pain, shortness of breath, or palpitations. Patient is afebrile. No reports of nausea or vomiting and patient is nothing by mouth. Patient will be transferred to [facility] for further GI evaluation. Patient is a full code and overall prognosis is extremely guarded at this time. Physical exam: Gen: This is a 72-year-old male awake, alert and oriented 2. Well-developed, well-nourished, ill-appearing, jaundiced HEENT: Head is atraumatic, normocephalic. Pupils equal, round. Sclerae is anicteric. NECK: Supple. No JVD. No lymphadenopathy. No thyromegaly. LUNGS: Diminished breath sounds bilaterally with no wheezes or rhonchi. No intercostal retractions. HEART: S1, S2 are muffled ABDOMEN: Soft. Distended, tympanic, sluggish Bowel sounds are present. No masses. No tenderness. EXTREMITIES: Generalized edema. No calf tenderness. NEUROLOGICAL: Patient is awake, alert and oriented x2. Cranial nerves 2 through 12 are grossly intact. Diffusely weak Please refer to medication reconciliation sheet for a list of medications. The impression and plan of care has been dictated by Nika Herrera, Nurse Practitioner as directed. Dr. Demond MD I have performed a history and examination and MDM of this patient, discussed the same with the dictator, and agree with the dictator's assessment and plan as written ,documented as a scribe. Based on total visit time, I have performed more than 50% of the visit. Patient Condition at Discharge: Stable Plan - Discharge Summary Discharge Rx Participant: No New Discharge Prescriptions: No Action RX: lisinopriL [Zestril] 10 mg PO DAILY RX: Cholecalciferol [Vitamin D3 (25 Mcg = 1000 Iu)] 25 mcg PO DAILY Pravastatin Sodium [Pravachol] 40 mg PO HS RX: Omeprazole 20 mg PO DAILY Lactulose [Constulose] 10 gm PO TID RX: Ciprofloxacin HCl 500 mg PO BID RX: Gabapentin 300 mg PO BID RX: Glucosam/Chond/Hyalu/Cf Borate [Move Free Joint Health Tablet] 1 tab PO DAILY RX: Cyanocobalamin [Vitamin B-12] 500 mcg PO DAILY RX: Insulin Aspart Prot/Insuln Asp [NovoLOG MIX 70-30 Flexpen] 15 unit SQ AC- BRKFST nadoloL [Corgard] 40 mg PO DAILY Liraglutide [Victoza 3-Chemo] 0.6 mg SQ DAILY Discharge Medication List RX: Cholecalciferol [Vitamin D3 (25 Mcg = 1000 Iu)] 25 mcg PO DAILY 05/04/22 [History] RX: Cyanocobalamin [Vitamin B-12] 500 mcg PO DAILY 05/04/22 [History] RX: Gabapentin 300 mg PO BID 05/04/22 [History] RX: Glucosam/Chond/Hyalu/Cf Borate [Move Free [employer] Health Tablet] 1 tab PO DAILY 05/04/22 [History] RX: Insulin Aspart Prot/Insuln Asp [NovoLOG MIX 70-30 Flexpen] 15 unit SQ AC- BRKFST 05/04/22 [History] RX: lisinopriL [Zestril] 10 mg PO DAILY 05/04/22 [History] Pravastatin Sodium [Pravachol] 40 mg PO HS 07/11/22 [History] Lactulose [Constulose] 10 gm PO TID 07/22/22 [History] Liraglutide [Victoza 3-Chemo] 0.6 mg SQ DAILY 07/22/22 [History] RX: Ciprofloxacin HCl 500 mg PO BID 07/22/22 [History] RX: Omeprazole 20 mg PO DAILY 07/22/22 [History] nadoloL [Corgard] 40 mg PO DAILY 07/22/22 [History] Follow up Appointment(s)/Referral(s): Jordan Mcdermott DO [Primary Care Provider] - 1-2 days
--- NOTE | 2022-07-24 13:10 | P.PN ---
Subjective Progress Note Date: 07/24/22 Spoke to patient RN and daughter today. Patient's calcium mild improved on Calcitonin, status post aredia yesterday. They are awaiting transfer to [facility] Objective - Vital Signs Vital signs: Vital Signs Temp 97.7 F 07/24/22 08:00 Pulse 50 L 07/24/22 11:00 Resp 17 07/24/22 11:00 BP 113/62 07/24/22 11:00 Pulse Ox 95 07/24/22 11:00 FiO2 Intake & Output 07/23/22 07/24/22 07/24/22 18:59 06:59 18:59 Intake Total 2480 2232 500 Output Total 1170 150 Balance 2480 1062 350 Weight 92.986 kg 92.6 kg Intake: IV 25 Octreotide 500 mcg In 25 Sodium Chloride 0.9% 250 ml @ 50 MCG/HR 25 mls/hr IV .Q10H [facility] Rx#: [id number] Intake, IV Titration 1900 2207 500 Amount Octreotide 500 mcg In 500 Sodium Chloride 0.9% 250 ml @ 50 MCG/HR 25 mls/hr IV .Q10H [facility] Rx#: [id number] Sodium Chloride 0.9% 1, 1850 1375 500 000 ml @ 125 mls/hr IV . Q8H [facility] Rx#:[id number] Sodium Chloride 0.9% 250 332 ml @ 83 mls/hr IV .Q3H1M ONE with Pamidronate 60 mg Rx#:[id number] cefTRIAXone 1 gm In 50 Sodium Chloride 0.9% 50 ml @ 100 mls/hr IVPB Q24HR [facility] Rx#:[id number] Oral 580 Output: Urine 500 150 Stool 450 Urine/Stool Mix 220 Other: Voiding Method Urinal # Voids 3 1 1 # Bowel Movements 3 1 1 - Exam - Constitutional General appearance: average body habitus, cooperative, no acute distress - EENT Eyes: EOMI, scleral icterus ENT: hearing grossly normal, normal oropharynx - Neck Neck: no lymphadenopathy - Respiratory Respiratory: bilateral: CTA - Cardiovascular Rhythm: regular Heart sounds: normal: S1, S2 Abnormal Heart Sounds: systolic murmur, no diastolic murmur, no rub, no S3 Gallop, no S4 Gallop, no click, no other leg Peripheral Edema: bilateral: Trace - Gastrointestinal General gastrointestinal: no absent bowel sounds, no decreased bowel sounds, no distended, hepatomegaly (About 2 fingerbreadths below costal margin with inspiration), no hyperactive bowel sounds, normal bowel sounds, no organomegaly, no rigid, no scaphoid, soft, no splenomegaly, no tenderness, no umbilical hernia, no ventral hernia - Integumentary Integumentary: jaundiced - Neurologic Neurologic: CNII-XII intact (Grossly) - Musculoskeletal Musculoskeletal: generalized weakness - Psychiatric Psychiatric: A&O x's 3, appropriate affect - Labs CBC & Chem 7: 07/24/22 06:51 07/24/22 19:25 Labs: Abnormal Lab Results - Last 24 Hours (Table) 07/23/22 07/23/22 07/23/22 Range/Units 07:22 17:43 17:47 RBC 4.26 L (4.40-5.60) X 10*6/uL MCV 104.0 H (80.0-100.0) fL MCHC 30.1 L (31.0-37.0) g/dL RDW 22.5 H 20.0 H (11.5-14.5) % Plt Count 52 L 79 L (140-440) X 10*3/uL Plt Count Comment DECREASED A Lymphocytes # 0.78 L (0.90-5.00) X 10*3/uL Immature Plt Fraction 6.8 H (1.1-6.1) % Macrocytosis Marked A Carbon Dioxide (22-30) mmol/L BUN (9-20) mg/dL Creatinine (0.66-1.25) mg/dL Calcium (8.4-10.2) mg/dL Total Bilirubin (0.2-1.3) mg/dL AST (17-59) U/L ALT (4-49) U/L Alkaline Phosphatase (38-126) U/L Crossmatch See Detail 07/24/22 07/24/22 Range/Units 06:51 06:51 RBC 4.18 L (4.40-5.60) X 10*6/uL MCV 105.9 H (80.0-100.0) fL MCHC 29.5 L (31.0-37.0) g/dL RDW 20.2 H (11.5-14.5) % Plt Count 50 L (140-440) X 10*3/uL Plt Count Comment Lymphocytes # 0.7 L (0.90-5.00) X 10*3/uL Immature Plt Fraction (1.1-6.1) % Macrocytosis Marked A Carbon Dioxide 17 L (22-30) mmol/L BUN 58 H (9-20) mg/dL Creatinine 1.56 H (0.66-1.25) mg/dL Calcium 13.5 H* (8.4-10.2) mg/dL Total Bilirubin 14.9 H (0.2-1.3) mg/dL AST 394 H (17-59) U/L ALT 71 H (4-49) U/L Alkaline Phosphatase 410 H (38-126) U/L Crossmatch Microbiology - Last 24 Hours (Table) 07/22/22 22:51 Urine Culture - Final Urine,Voided Assessment and Plan Plan: Assessment and Plan (1) Hypercalcemia Current Visit: Yes Status: Acute Priority: High Code(s): E83.52 - HYPERCALCEMIA SNOMED Code(s): 53186774 (2) Liver masses Current Visit: Yes Status: Acute Priority: High Code(s): R16.0 - HEPATOMEGALY, NOT ELSEWHERE CLASSIFIED SNOMED Code(s): 565202757 (3) Thrombocytopenia Current Visit: Yes Status: Acute Priority: Medium Code(s): D69.6 - THROMBOCYTOPENIA, UNSPECIFIED SNOMED Code(s): 127480431 (4) Portal vein thrombosis Current Visit: No Status: Acute Code(s): I81 - PORTAL VEIN THROMBOSIS SNOMED Code(s): 17609936 Plan: Review to [facility] notes. Below is a summary of that documentation Hepatology has given the patient a diagnosis of hepatocellular carcinoma, they're confident in the same without biopsy. His case should be being reviewed by tumor board this week. [facility] should be getting a hold of patient for further discussion. Hypercalcemia of malignancy. currently on calcitonin and IV fluids Status post 1 dose of pamidronate Nephrology OCnsult, Creatinine worsenening (mild) For progressive liver failure, GI is Following [facility] or tertiary care with hepatology
[2022-07-24 13:12] VITALS: BMI 28.4
[2022-07-24 14:30] LABS: LDH 436 U/L (313-618); Magnesium 1.8 mg/dL (1.6-2.3); Phosphorus 4.4 mg/dL (2.5-4.5)
--- NOTE | 2022-07-24 15:21 | CDI ---
Documentation Clarification Form Date: 07/24/2022 02:44:42 PM From: Ami Brown RN, CCDS Admit Date: 07/22/2022 07:37:00 PM Patient Name: Milad Staley Visit Number: [id number] Discharge Date: ATTENTION: The Clinical Documentation Specialists (CDI) and [facility] Coding Staff appreciate your assistance in clarifying documentation. Please respond to the clarification below the line at the bottom and electronically sign. The CDI & [facility] Coding staff will review the response and follow-up if needed. Please note: Queries are made part of the Legal Health Record. If you have any questions, please contact the author of this message via ITS. Dr. Mary Lagos Your patient has the documented symptom progressively lethargic, altered mental status. Additional clarification regarding the etiology/cause of this symptom is requested. History/Risk Factors: Possible hepatic cancer, Diabetes Mellitus, Hypertension Chronic liver disease, Alcohol use Clinical Indicators: 72-year-old male present with past medical history of cirrhosis of liver became progressively lethargic. Pleasantly confused, verbal response confused per Emergency room assessment. He skin jaundice. 07/22 Vital signs: 103/64 53 18 97.8 100% RA UA: Ur Leukocyte Esterase small 07/22 Labs: Na+ 134, BUN 50, CR 1.20, CA+ 13.9, Total Bilirubin 11.5, AST 434, ALT 65, Ammonia 74 Plt count 59 Treatment: ICU/Telemetry monitoring Rocephin 1 GM IV Q 24 HRS, Lactulose 30 GM PO BID Neuro checks per protocol Monitor Labs per orders Please clarify the etiology of the symptom of "altered mental status" lethargy, confusion? [ ] Metabolic Encephalopathy due to liver failure, UTI [ ] Hepatic Encephalopathy with elevated ammonia levels [ ] Other condition (please specify) [ ] Unable to determine (Template Last Revised: December 2020) Unable to determine MTDD
[2022-07-24 16:01] LABS: Bilirubin, Conjugated 9.45 mg/dL (0.20-0.40); Bilirubin,Unconjugated 2.65 mg/dL (0.20-1.00); Total Bilirubin 12.1 mg/dL (0.30-1.20)
[2022-07-24 16:02] LABS: T4, Free (Free Thyroxine) 3.02 ng/dL (0.78-2.19)
[2022-07-24] MEDS ORDERED: SODIUM BICARB 8.4% 50 ML SYR (1 MEQ/ML) IV STA ×2 (18:10→18:20)
[2022-07-24] MEDS ORDERED: FUROSEMIDE 10 MG/ML 4 ML VIAL IV STA (18:10)
[2022-07-24 19:51] LABS: Albumin 3.6 g/dL (3.5-5.0); Potassium 5.2 mmol/L (3.5-5.1)
[2022-07-24 19:54] LABS: Calcium 13.2 mg/dL (8.4-10.2)
[2022-07-24] MEDS ORDERED: CALCITONIN INJ 200 UNIT/ML (MDV) VIAL IM ONE (20:12)
[2022-07-24] MEDS: ONDANSETRON 4 MG/2 ML VIAL IVP PRN (22:00)
[2022-07-25] MEDS: OCTREOTIDE 500 MCG in SODIUM CHLORIDE 0.9% 250 ML IV SCH (01:07)
[2022-07-25 03:38] VITALS: PULSE 56
[2022-07-25] MEDS: ONDANSETRON 4 MG/2 ML VIAL IVP PRN (04:00)
[2022-07-25 04:44] VITALS: TEMP 98
[2022-07-25 06:38] LABS: Anisocytosis Moderate; Basophils % (A) 0 %; Eosinophils % (A) 1 %; HGB 12.3 gm/dL (13.0-17.5); Hypochromasia Marked; Lymphocytes # (A) 0.4 k/uL (1.0-4.8); Lymphocytes % (A) 6 %; MCH 30.8 pg (25.0-35.0); MCHC 29.3 g/dL (31.0-37.0); MCV 105.2 fL (80.0-100.0); Macrocytosis Marked; Mean Platelet Volume 9.8; Monocytes # (A) 0.4 k/uL (0-1.0); Monocytes % (A) 7 %; Neutrophils # (A) 4.9 k/uL (1.3-7.7); Neutrophils % (A) 84 %; Platelet Count 62 k/uL (150-450); Poikilocytosis Slight; RBC 3.99 m/uL (4.30-5.90); RDW 20.4 % (11.5-15.5); WBC 5.9 k/uL (3.8-10.6)
[2022-07-25 06:43] LABS: Calcium 12.7 mg/dL (8.4-10.2); Potassium 4.9 mmol/L (3.5-5.1)
[2022-07-25] MEDS: SODIUM CHLORIDE 0.9% 1,000 ML IV SCH (06:51)
[2022-07-25 07:35] VITALS: BP 110/61; RESP 18
== END 2022-07-25 07:10 | disposition short-term general hospital (02) | DRG 435 ==
LOC: EC 15:48 → 4SSUR 19:37 → 5NMEDONC 07-23 02:42 → 2SICU 07-23 20:15
PROVIDERS: ADMIT Hospitalist; ATTEND Hospitalist
DX: C22.0 Liver cell carcinoma (principal); I81 Portal vein thrombosis; K76.6 Portal hypertension; K92.0 Hematemesis; I85.10 Secondary esophageal varices without bleeding; N39.0 Urinary tract infection, site not specified; K92.1 Melena; K72.90 Hepatic failure, unspecified without coma; D69.6 Thrombocytopenia, unspecified; K70.31 Alcoholic cirrhosis of liver with ascites; E11.40 Type 2 diabetes mellitus with diabetic neuropathy, unspecified; D63.0 Anemia in neoplastic disease; Z79.4 Long term (current) use of insulin; Z20.822 Contact with and (suspected) exposure to COVID-19; F10.10 Alcohol abuse, uncomplicated; K31.89 Other diseases of stomach and duodenum; E86.0 Dehydration; E83.52 Hypercalcemia; I10 Essential (primary) hypertension; K57.30 Diverticulosis of large intestine without perforation or abscess without bleeding; M54.50 Low back pain, unspecified; I45.10 Unspecified right bundle-branch block; E78.5 Hyperlipidemia, unspecified; K21.9 Gastro-esophageal reflux disease without esophagitis; Z79.899 Other long term (current) drug therapy
CPT/HCPCS: 36415; 80048; 80053; 80074; 81001; 82040; 82105; 82140; 82248; 83615; 83735; 84100; 84153; 84439; 84443; 84550; 85025; 85610; 85730; 86850; 86900; 86901; 86920; 87086; 87635; 93005; 96360; 96361; 99285